=== PATIENT | male | born 1945 | race American Indian/Alaskan Native ===

== ENCOUNTER 2017-08-04 10:45 | Outpatient (CLI) | payer BC ==
--- NOTE | 2017-08-04 11:42 | Cat Scan Report ---
CT ABDOMEN PELVIS WITHOUT CONTRAST: HISTORY: Urinary tract infection site not specified. COMPARISON: none. TECHNIQUE: Helical CT in 1.25mm intervals without IV contrast. Sagittal and coronal reconstructions. FINDINGS: Lung bases: Normal. Liver: Normal. Biliary system: Normal. Pancreas: Normal. Spleen: Normal. Kidneys/ureters/bladder: Normal. A Sheets catheter is in place. Adrenal glands: Normal. Aorta: Normal. Intestines: There is moderate to large stool throughout the length of the colon. Small bowel loops and stomach are unremarkable. Appendix: Normal. Pelvic viscera: The prostate gland is borderline enlarged measuring 5.2 cm in diameter. Ascites: None. Adenopathy: None. Musculoskeletal: Normal. IMPRESSION: Unremarkable CT scan of the abdomen and pelvis without contrast. Mild fecal retention. Borderline prostate size. The bladder is unremarkable on noncontrast CT.
== END 2017-08-04 10:46 | disposition home or self-care (01) ==
LOC: CT 10:45
PROVIDERS: ATTEND Urology
DX: N39.0 Urinary tract infection, site not specified (principal); K59.00 Constipation, unspecified
CPT/HCPCS: 74176

== ENCOUNTER 2017-10-21 09:48 | Outpatient (CLI) | payer MEDICARE ==
--- NOTE | 2017-10-21 14:39 | PET Report ---
PET SB TO MT SUBSEQUENT: HISTORY: Colon cancer. TECHNIQUE: 14.0 millicuries F-18 FDG was administered intravenously. Noncontrast CT images and PET images were obtained from the skull base to the proximal thighs. Fused images were reviewed on a workstation. The patient's blood glucose level measured 117. COMPARISON: No previous PET/CT at this facility. FINDINGS: BRAIN: physiologic FDG uptake in the imaged brain. NECK: physiologic FDG uptake. MEDIASTINUM: physiologic FDG uptake. LUNGS: physiologic FDG uptake. PLEURA/PERICARDIUM: physiologic FDG uptake. THORACIC LYMPH NODES: physiologic FDG uptake. HEPATOBILIARY: physiologic FDG uptake. Mean liver SUV measures 3.8. PANCREAS: physiologic FDG uptake. SPLEEN: physiologic FDG uptake. ADRENAL GLANDS: physiologic FDG uptake. KIDNEYS/RENAL COLLECTING SYSTEMS: physiologic FDG uptake. BOWEL/MESENTERY: There is a solitary focus of relatively intense radiotracer uptake within the left abdomen involving the distal descending colon with Max SUV measuring 5.7. There is no distinct mass in this area on the CT images. This is located approximately 6-7 cm from the left lower quadrant ostomy site. PELVIC VISCERA: physiologic FDG uptake. ABDOMINAL/PELVIC LYMPH NODES: physiologic FDG uptake. MUSCULOSKELETAL: physiologic FDG uptake. IMPRESSION: There is a solitary focus of increased radiotracer uptake in the distal descending colon near the ostomy site as outlined above. I do not clearly see a mass in this area on the CT images however I cannot entirely exclude a local recurrence/metastasis. No other areas of abnormal radiotracer uptake is demonstrated.
== END 2017-10-21 09:49 | disposition home or self-care (01) ==
LOC: PET 09:48
PROVIDERS: ATTEND Internal Medicine Hematology
DX: C18.7 Malignant neoplasm of sigmoid colon (principal); N40.0 Benign prostatic hyperplasia without lower urinary tract symptoms; I10 Essential (primary) hypertension; N32.81 Overactive bladder; E46 Unspecified protein-calorie malnutrition; G47.30 Sleep apnea, unspecified
CPT/HCPCS: 78815; 82962; A9552

== ENCOUNTER 2018-01-04 11:40 | Outpatient (CLI) | payer BC ==
--- NOTE | 2018-01-04 13:13 | XRay Report ---
LEFT KNEE, 3 views: History: Left knee pain. The bony architecture is intact without evidence of fracture or dislocation. No significant soft tissue abnormality is seen. IMPRESSION: Unremarkable left knee films.
== END 2018-01-04 11:41 | disposition home or self-care (01) ==
LOC: SPVIMAG 11:40
DX: M25.562 Pain in left knee (principal); I10 Essential (primary) hypertension; E78.00 Pure hypercholesterolemia, unspecified; I48.91 Unspecified atrial fibrillation; M19.90 Unspecified osteoarthritis, unspecified site

== ENCOUNTER 2018-05-19 09:32 | Outpatient (CLI) | payer BC ==
--- NOTE | 2018-05-20 08:27 | PET Report ---
PET SB TO MT SUBSEQUENT: HISTORY: Colon cancer. TECHNIQUE: 14.6 millicuries F-18 FDG was administered intravenously. Noncontrast CT images and PET images were obtained from the skull base to the proximal thighs. Fused images were reviewed on a workstation. The patient's blood glucose level measured 131. COMPARISON: 10/21/17. FINDINGS: BRAIN: physiologic FDG uptake in the imaged brain. NECK: physiologic FDG uptake. MEDIASTINUM: physiologic FDG uptake. LUNGS: physiologic FDG uptake. PLEURA/PERICARDIUM: physiologic FDG uptake. THORACIC LYMPH NODES: physiologic FDG uptake. HEPATOBILIARY: physiologic FDG uptake. Mean liver SUV measures 3.9 as opposed to 3.8 on the previous exam. PANCREAS: physiologic FDG uptake. SPLEEN: physiologic FDG uptake. ADRENAL GLANDS: physiologic FDG uptake. KIDNEYS/RENAL COLLECTING SYSTEMS: physiologic FDG uptake. BOWEL/MESENTERY: physiologic FDG uptake. The previously described solitary focus of increased radiotracer uptake in the distal colon has resolved and is no longer seen. PELVIC VISCERA: physiologic FDG uptake. ABDOMINAL/PELVIC LYMPH NODES: physiologic FDG uptake. MUSCULOSKELETAL: physiologic FDG uptake. IMPRESSION: Negative PET/CT. No evidence for disease metastasis or recurrence.
== END 2018-05-19 09:33 | disposition home or self-care (01) ==
LOC: PET 09:32
PROVIDERS: ATTEND Internal Medicine Hematology
DX: C18.7 Malignant neoplasm of sigmoid colon (principal); I10 Essential (primary) hypertension; E78.00 Pure hypercholesterolemia, unspecified; M19.90 Unspecified osteoarthritis, unspecified site
CPT/HCPCS: 78815; 82962; A9552

== ENCOUNTER 2018-10-06 11:56 | Outpatient (CLI) | payer BC, MEDICARE ==
--- NOTE | 2018-10-07 10:09 | PET Report ---
PET/CT:10/06/18 11:56:00 CLINICAL: Colon cancer restaging. RADIOPHARMACEUTICAL: 12.677mCi F18-FDG. COMPARISON: 05/19/18 PET/CT TECHNIQUE- Following intravenous injection of F-18 FDG and an approximately 60 minute uptake period, CT and PET images from the mid skull to the upper thighs were acquired with the patient in the fasted state. No contrast was administered. The CT protocol used for this PET CT study is designed for attenuation correction and anatomic localization of PET abnormalities. This acct exec CT is not desired to produce and cannot replace, [id number] diagnostic CT scans with specific imaging protocols for different body parts and indications. Plasma glucose at the time of this test: 82g/dl. The standardized uptake values (SUV) are normalized to patient body weight and indicate the highest activity concentration (SUV max) in a given disease site. FINDINGS: Brain--Physiologic FDG uptake in the visualized regions of the brain. Neck--Physiologic FDG uptake in mucosal structures. No mass or lymphadenopathy. Chest--Physiologic FDG uptake in mediastinal blood pool and myocardium. Lungs--No abnormal uptake. No pulmonary nodule or mass. Pleura/pericardium--No abnormal uptake. Thoracic nodes--No abnormal uptake. Hepatobiliary--No abnormal uptake. Liver background SUV mean, as a reference for comparing FDG studies, is 4.7 compared to 3.9 on the last exam. No liver mass. Spleen--No abnormal uptake. Pancreas--No abnormal uptake. Adrenal Glands--No abnormal uptake. Kidneys/Ureters/Bladder--No abnormal uptake. Abdominopelvic Nodes--No abnormal uptake. Bowel/Peritoneum/Mesentery--No abnormal uptake. Status post left colectomy with a left colostomy. Pelvic organs--No abnormal uptake. Bones/Soft Tissues--No abnormal uptake and no suspicious bone lesions. IMPRESSION-Negative study.
== END 2018-10-06 11:57 | disposition home or self-care (01) ==
LOC: PET 11:56
PROVIDERS: ATTEND Internal Medicine Hematology
DX: C18.7 Malignant neoplasm of sigmoid colon (principal); I10 Essential (primary) hypertension; E78.00 Pure hypercholesterolemia, unspecified
CPT/HCPCS: 78815; 82962; A9552

== ENCOUNTER 2018-11-07 10:16 | Inpatient (IN) | payer MEDICARE ==
--- NOTE | 2018-11-01 12:11 | Anesthesia Consultation ---
Anesthesia Consult and Med Hx Date of service: 11/01/18 - Airway Anesthetic Teeth Evaluation: Good ROM Head & Neck: Adequate Mental/Hyoid Distance: Adequate Mallampati Class: Class II Intubation Access Assessment: Good - Pulmonary Exam CTA: Yes - Cardiac Exam Cardiac Exam: RRR - Pre-Operative Health Status ASA Pre-Surgery Classification: ASA3 Proposed Anesthetic Plan: General (Pt with HTN, DM -diet controlled , Colon CA, GERD for GA.Patient seen by cardiology and had negative stress test ) - Pulmonary Hx Smoking: No Hx Asthma: No COPD: No Hx Pneumonia: No Hx Sleep Apnea: No (KEE PRE SCREEN HIGH RISK) - Cardiovascular System Hx Hypertension: Yes (2011) Hx Coronary Artery Disease: Yes Hx Heart Attack/AMI: Yes (CABG 2011) - Gastrointestinal Hx Ulcer: Yes - Endocrine Hx End Stage Renal Disease: No - Other Systems Hx Cancer: Yes (sigmoid mass)
[2018-11-01 12:21] LABS: Basophils % (Auto) 0.7 % (0.0-1.8); Eosinophils % (Auto) 0.9 % (0.0-4.3); Hematocrit 40.8 % (35.5-45.6); Hemoglobin 13.9 gm/dl (11.8-15.2); Lymphocytes % (Auto) 21.1 % (13.4-35.0); Mean Corpuscular HGB Conc 34 % (32-34); Mean Corpuscular Volume 104 fl (84-94); Monocytes # (Auto) 0.4 K/mm3 (0.0-0.8); Monocytes % (Auto) 8.7 % (0.0-7.3); Platelet Count 121 K/mm3 (140-440); Red Blood Count 3.92 M/mm3 (3.65-5.03); Red Cell Distribution Width 13.7 % (13.2-15.2)
[2018-11-01 12:39] LABS: BUN/Creatinine Ratio 11; Blood Urea Nitrogen 12 mg/dL (9-20); Hemolysis Index 25
[~2018-11-07 10:16] MED LIST: ANCEF/STERILE WATER 2 GM/20 ML 2 GM/20 ML SYRINGE IV NR; FLEET PR ONE; NEURONTIN PO SCH; TYLENOL PO NR
[2018-11-07] MEDS ORDERED: FLEET PR ONE (10:43)
[2018-11-07] MEDS ORDERED: SUBLIMAZE ONE ×2 (11:26→16:55)
[2018-11-07] MEDS ORDERED: DIPRIVAN 10 MG/ML IV ONE (11:26)
[2018-11-07] MEDS ORDERED: ZOFRAN ONE (11:30)
[2018-11-07] MEDS ORDERED: ZEMURON IV ONE (11:30)
--- NOTE | 2018-11-07 11:38 | Anesthesia Day of Surgery ---
Anesthesia Day of Surgery - Day of Surgery Patient Examined: Yes Patient H&P Reviewed: Yes Patient is NPO: Yes Beta Blockers: Yes
[2018-11-07] MEDS ORDERED: VERSED ONE (11:47)
[2018-11-07] MEDS: LACTATED RINGERS 1,000 ML IV SCH ×2 (11:55→21:16)
[2018-11-07] MEDS ORDERED: MARCAINE 0.5% INFILTRATI ONE ×2 (11:58→15:08)
[2018-11-07] MEDS ORDERED: XYLOCAINE 1% 20 mL ONE (11:58)
[2018-11-07] MEDS ORDERED: ZOFRAN IV PRN ×2 (12:30→21:13)
[2018-11-07] MEDS ORDERED: VERSED IV NR (12:30)
[2018-11-07] MEDS ORDERED: SUBLIMAZE IV PRN (12:30)
[2018-11-07] MEDS ORDERED: XYLOCAINE 2% UROJET ONE (12:56)
[2018-11-07] MEDS ORDERED: XYLOCAINE 1% 20 mL INFILTRATI ONE (15:09)
[2018-11-07] MEDS ORDERED: WATER FOR IRRIG STERILE IR ONE (15:09)
[2018-11-07] MEDS ORDERED: NACL 0.9% IR ONE (15:10)
--- NOTE | 2018-11-07 18:24 | Operative Report ---
INTRAOPERATIVE CONSULT AND TREATMENT The patient is a 73-year-old gentleman for colostomy placement. When they were prepping him, he had severe phimosis, they could not see the head of the penis. Urology consultation was obtained to place catheter and to expose the head of the penis. PROCEDURE: The patient was already asleep. He was in partial lithotomy position. He was prepped and draped. The pinpoint opening in the foreskin with a possible mass or thickened foreskin was noted. A biopsy of this was obtained once we exposed the head of the penis. We sent a specimen to pathology. I suspect he will need a followup circumcision. A dorsal slit was carried out and the edges were oversewn with 3-0 chromic. The meatus was seen. There were no lesions on the glans. A 16-Sheets was placed. The urine was clear. The patient tolerated the procedure well. He was prepared for the general surgical procedure. JOB# [id number] HARSHIL/ALPHONSO
--- NOTE | 2018-11-07 18:46 | Post Operative Note ---
Date of procedure: 11/07/18 (dictated - number not available) Pre-op diagnosis: h/o colon cancer; colostomy Post-op diagnosis: same Findings: extensive adhesions in lower abdomen Procedure: robotic assisted colostomy takedown and primary anastomosis extensive lysis of adhesions (robotically) IVF-1700 EBL- <30cc UOP 550cc Anesthesia: GETA Surgeon: EVETTE HERRERA [facility] Center Coordinator: JOELLE SARAVIA Estimated blood loss: minimal Pathology: list (foreskin biopsy by Dr. Shields) Specimen disposition: to lab Condition: stable Disposition: PACU
[2018-11-07] MEDS ORDERED: HumaLOG SUB-Q SCH (20:00)
[2018-11-07] MEDS ORDERED: D50W (25GM) Syringe IV PRN (21:13)
[2018-11-07] MEDS ORDERED: REGLAN IV PRN (21:13)
--- NOTE | 2018-11-07 21:50 | Consultation ---
<JAMAAL CLARK - Last Filed: 11/08/18 06:16> History of Present Illness - Reason for Consult Consult date: 11/07/18 Medical mangement Requesting physician: EVETTE HERRERA - History of Present Illness Pt is a 73 year old male with PMHx of HTN, DM type 2, Colon CA, GERD, BPH who was admitted for an elective robotic colostomy take down. Patient underwent the procedure today, tolerated well, he was seen post op in PACU, he is alert and oriented, somewhat somnolent, able to provide medical history. He is admitted for postop monitoring and further management, hospitalist is consulted for medical management. Past History Past Medical History: diabetes, hypertension, hyperlipidemia, other (BPH and glaucoma) Medications and Allergies Allergies Allergy/AdvReac Type Severity Reaction Status Date / Time No Known Allergies Allergy Verified 10/06/18 09:34 Home Medications Medication Instructions Recorded Confirmed Last Taken Type Aspirin 325 mg PO QDAY 08/02/17 11/07/18 3 Weeks Ago History ~10/17/18 Metoprolol [Lopressor TAB] 25 mg PO DAILY 08/02/17 11/07/18 11/07/18 07:00 History Tamsulosin [Flomax] 0.4 mg PO QDAY 08/02/17 11/07/18 2 Weeks Ago History ~10/24/18 AtorvaSTATin [Lipitor] 40 mg PO QHS 10/06/18 11/07/18 11/05/18 History Latanoprost 0.005% 1 drop OP QPM 10/06/18 11/07/18 11/06/18 History Olmesartan/Hydrochlorothiazide 1 each PO DAILY 10/06/18 11/07/18 11/05/18 History [Olmesartan-Hctz 20-12.5 mg Tab] Active Meds: Active Medications Acetaminophen (Tylenol) 1,000 mg PO PREOP NR Stop: 11/07/18 23:59 Last Admin: 11/07/18 11:25 Dose: 1,000 mg Documented by: Celecoxib (Celebrex) 200 mg PO PREOP NR Stop: 11/07/18 23:59 Last Admin: 11/07/18 11:25 Dose: 200 mg Documented by: Clonidine HCl (Catapres-Tts Patch) 0.2 mg TD Mo MATI Dextrose (D50w (25gm) Syringe) 50 ml IV PRN PRN PRN Reason: Hypoglycemia Gabapentin (Neurontin) 900 mg PO PREOP MATI Stop: 11/07/18 23:59 Last Admin: 11/07/18 11:25 Dose: 900 mg Documented by: Hydromorphone HCl (Dilaudid) 0.25 mg IV Q3H PRN PRN Reason: Pain, Moderate (4-6) Lactated Ringer's (Lactated Ringers) 1,000 mls @ 75 mls/hr IV DIRECT MATI Stop: 11/07/18 23:59 Last Admin: 11/07/18 21:16 Dose: 75 mls/hr Documented by: Cefazolin Sodium (Ancef/Sterile Water 2 Gm/20 Ml) 2 gm in 20 mls @ 80 mls/hr IV PREOP NR; Protocol Stop: 11/07/18 23:59 Insulin Human Regular (Humulin R) 0 units SUB-Q Q6HR MATI; Protocol Latanoprost (Latanoprost 0.005%) 1 drops OU QPM MATI Metoclopramide HCl (Reglan) 10 mg IV Q6H PRN PRN Reason: Nausea And Vomiting Ondansetron HCl (Zofran) 4 mg IV Q8H PRN PRN Reason: N/V unrelieved by Reglan Exam - Constitutional Vitals: Temp Pulse Resp BP Pulse Ox 97.9 F 56 L 20 160/84 100 11/07/18 20:11 11/07/18 20:11 11/07/18 20:11 11/07/18 20:11 11/07/18 20:11 General appearance: Present: mild distress - EENT Eyes: Present: EOM intact ENT: hearing intact - Neck Neck: Present: normal ROM - Respiratory Respiratory effort: normal Respiratory: bilateral: CTA - Cardiovascular Rhythm: regular Heart Sounds: Present: S1 & S2 - Extremities Extremities: no ischemia, No edema Peripheral Pulses: within normal limits - Abdominal General gastrointestinal: Present: deferred Male genitourinary: Present: deferred, normal - Integumentary Integumentary: Present: warm, dry - Musculoskeletal Musculoskeletal: generalized weakness - Psychiatric Psychiatric: appropriate mood/affect - Neurologic Neurologic: moves all extremities Results - Labs CBC & Chem 7: 11/01/18 12:16 11/01/18 12:16 Labs: Abnormal lab results 11/07/18 11/07/18 Range/Units 11:55 19:26 POC Glucose 121 H 163 H (70-105) Assessment and Plan 1. Status post robotic colostomy take down postop day 0 2. Hypertension 3. Hyperlipidemia 4. DM type 2 (stable) 5. Colon Ca 6. GERD 7. BPH Plan: Pt is admitted to surgical unit for monitoring Continue home meds when ok with surgery Resume diet when ok with surgery Glycemic management with insulin per sliding scale Further plan per hospital course and surgery recommendation <DARIUS HURST S - Last Filed: 11/15/18 15:17> Exam - Constitutional Vitals: Temp Pulse Resp BP Pulse Ox 97.3 F L 59 L 18 123/67 96 11/11/18 12:01 11/11/18 12:01 11/11/18 12:01 11/11/18 12:01 11/11/18 12:01 Results - Labs CBC & Chem 7: 11/08/18 06:13 11/08/18 06:13
--- NOTE | 2018-11-07 21:51 | Consultation ---
Medications and Allergies Allergies Allergy/AdvReac Type Severity Reaction Status Date / Time No Known Allergies Allergy Verified 10/06/18 09:34 Home Medications Medication Instructions Recorded Confirmed Last Taken Type Aspirin 325 mg PO QDAY 08/02/17 11/07/18 3 Weeks Ago History ~10/17/18 Metoprolol [Lopressor] 25 mg PO DAILY 08/02/17 11/07/18 11/07/18 07:00 History Tamsulosin [Flomax] 0.4 mg PO QDAY 08/02/17 11/07/18 2 Weeks Ago History ~10/24/18 AtorvaSTATin [Lipitor] 40 mg PO QHS 10/06/18 11/07/18 11/05/18 History Latanoprost 0.005% [Xalatan 0.005%] 1 drop OP QPM 10/06/18 11/07/18 11/06/18 History Olmesartan/Hydrochlorothiazide 1 each PO DAILY 10/06/18 11/07/18 11/05/18 History [Olmesartan-Hctz 20-12.5 mg Tab] Active Meds: Active Medications Acetaminophen (Tylenol) 1,000 mg PO PREOP NR Stop: 11/07/18 23:59 Last Admin: 11/07/18 11:25 Dose: 1,000 mg Documented by: Celecoxib (Celebrex) 200 mg PO PREOP NR Stop: 11/07/18 23:59 Last Admin: 11/07/18 11:25 Dose: 200 mg Documented by: Clonidine HCl (Catapres-Tts Patch) 0.2 mg TD Mo MATI Dextrose (D50w (25gm) Syringe) 50 ml IV PRN PRN PRN Reason: Hypoglycemia Gabapentin (Neurontin) 900 mg PO PREOP MATI Stop: 11/07/18 23:59 Last Admin: 11/07/18 11:25 Dose: 900 mg Documented by: Hydromorphone HCl (Dilaudid) 0.25 mg IV Q3H PRN PRN Reason: Pain, Moderate (4-6) Lactated Ringer's (Lactated Ringers) 1,000 mls @ 75 mls/hr IV DIRECT MATI Stop: 11/07/18 23:59 Last Admin: 11/07/18 21:16 Dose: 75 mls/hr Documented by: Cefazolin Sodium (Ancef/Sterile Water 2 Gm/20 Ml) 2 gm in 20 mls @ 80 mls/hr IV PREOP NR; Protocol Stop: 11/07/18 23:59 Insulin Human Regular (Humulin R) 0 units SUB-Q Q6HR MATI; Protocol Latanoprost (Latanoprost 0.005%) 1 drops OU QPM MATI Metoclopramide HCl (Reglan) 10 mg IV Q6H PRN PRN Reason: Nausea And Vomiting Ondansetron HCl (Zofran) 4 mg IV Q8H PRN PRN Reason: N/V unrelieved by Reglan Exam - Constitutional Vitals: Temp Pulse Resp BP Pulse Ox 97.9 F 56 L 20 160/84 100 11/07/18 20:11 11/07/18 20:11 11/07/18 20:11 11/07/18 20:11 11/07/18 20:11 Results - Labs CBC & Chem 7: 11/01/18 12:16 11/01/18 12:16 Labs: Abnormal lab results 11/07/18 11/07/18 Range/Units 11:55 19:26 POC Glucose 121 H 163 H (70-105)
[2018-11-07] MEDS ORDERED: CATAPRES-TTS PATCH TD SCH (22:00)
[2018-11-07] MEDS: DILAUDID IV PRN (22:15)
--- NOTE | 2018-11-07 22:19 | Post Anesthesia Evaluation ---
- Post Anesthesia Evaluation Patient Participated: Yes Airway Patent: Yes Stable Respiratory Function: Yes Nausea/Vomiting: No Temp > 96.8F: Yes Pain Manageable: Yes Adequeate Hydration: Yes Anesthesia Complications: No
[2018-11-08] MEDS: HumuLIN R SUB-Q SCH ×4 (00:28→17:38)
[2018-11-08] MEDS: DILAUDID IV PRN (05:55)
[2018-11-08 06:32] LABS: Basophils % (Auto) 0.3 % (0.0-1.8); Eosinophils % (Auto) 0.1 % (0.0-4.3); Hematocrit 38.6 % (35.5-45.6); Hemoglobin 13.1 gm/dl (11.8-15.2); Lymphocytes # (Auto) 0.7 K/mm3 (1.2-5.4); Lymphocytes % (Auto) 10.6 % (13.4-35.0); Mean Corpuscular HGB Conc 34 % (32-34); Mean Corpuscular Volume 103 fl (84-94); Monocytes # (Auto) 0.7 K/mm3 (0.0-0.8); Monocytes % (Auto) 9.5 % (0.0-7.3); Platelet Count 108 K/mm3 (140-440); Red Blood Count 3.75 M/mm3 (3.65-5.03); Red Cell Distribution Width 13.5 % (13.2-15.2)
[2018-11-08 06:48] LABS: BUN/Creatinine Ratio 13; Blood Urea Nitrogen 15 mg/dL (9-20); Calcium 8.8 mg/dL (8.4-10.2); Hemolysis Index 42
--- NOTE | 2018-11-08 08:43 | Progress Note ---
Assessment and Plan - Patient Problems (1) Colostomy status Current Visit: Yes Status: Acute Plan to address problem: Pt stable. s/p robotic assisted colostomy takedown and lysis of adhesions. - 11/07/18 - POD#1. Patient appears to be doing well. Labs look good. Vital signs are stable. Plan: 1) ambulate 2) encouraged to use incentive spirometry. Instructed on use 3) start clear liquid diet tonight 4) begin Lovenox tonight 5) spoke to nurse about doing daily dressing changes on the old ostomy site and the foreskin dorsal slit that was done by Dr. Shields. Subjective Date of service: 11/08/18 Patient Reports: Positive: no new complaints. Negative: nausea, vomiting Objective Vital Signs - 12hr 11/07/18 11/07/18 11/07/18 22:00 22:15 22:45 Temperature Pulse Rate Respiratory 16 17 Rate Respiratory 16 Rate [Abdomen] Blood Pressure Blood Pressure [Left] O2 Sat by Pulse Oximetry 11/07/18 11/08/18 11/08/18 23:59 00:04 00:31 Temperature 97.6 F 97.6 F Pulse Rate 71 90 70 Respiratory 20 20 Rate Respiratory Rate [Abdomen] Blood Pressure 147/74 147/74 Blood Pressure 147/74 [Left] O2 Sat by Pulse 99 99 Oximetry 11/08/18 11/08/18 11/08/18 04:07 05:55 08:06 Temperature 97.8 F 98.0 F Pulse Rate 65 71 Respiratory 20 17 18 Rate Respiratory Rate [Abdomen] Blood Pressure 128/64 136/67 Blood Pressure [Left] O2 Sat by Pulse 100 100 Oximetry - General physical appearance no distress, no pain, other (sitting up in bed) - Eyes normal occular movement - Respiratory normal expansion, normal respiratory effort - Abdomen soft, not tender, bowel sounds hypoactive, not distended, not guarding, not rigid, surgical scars (C/d/I) - Psychiatric oriented to time, oriented to person, oriented to place, speech is normal, memory intact - Labs 11/08/18 06:13 11/08/18 06:13 Diabetes panel 11/08/18 Range/Units 06:13 Sodium 142 (137-145) mmol/L Potassium 4.4 (3.6-5.0) mmol/L Chloride 106.0 (98-107) mmol/L Carbon Dioxide 26 (22-30) mmol/L BUN 15 (9-20) mg/dL Creatinine 1.2 (0.8-1.5) mg/dL Glucose 128 H (75-100) mg/dL Calcium 8.8 (8.4-10.2) mg/dL Calcium panel 11/08/18 Range/Units 06:13 Calcium 8.8 (8.4-10.2) mg/dL Pituitary panel 11/08/18 Range/Units 06:13 Sodium 142 (137-145) mmol/L Potassium 4.4 (3.6-5.0) mmol/L Chloride 106.0 (98-107) mmol/L Carbon Dioxide 26 (22-30) mmol/L BUN 15 (9-20) mg/dL Creatinine 1.2 (0.8-1.5) mg/dL Glucose 128 H (75-100) mg/dL Calcium 8.8 (8.4-10.2) mg/dL Adrenal panel 11/08/18 Range/Units 06:13 Sodium 142 (137-145) mmol/L Potassium 4.4 (3.6-5.0) mmol/L Chloride 106.0 (98-107) mmol/L Carbon Dioxide 26 (22-30) mmol/L BUN 15 (9-20) mg/dL Creatinine 1.2 (0.8-1.5) mg/dL Glucose 128 H (75-100) mg/dL Calcium 8.8 (8.4-10.2) mg/dL
--- NOTE | 2018-11-08 13:56 | Operative Report ---
PREOPERATIVE DIAGNOSIS: 1. History of colon cancer. 2. Colostomy. POSTOPERATIVE DIAGNOSIS: 1. History of colon cancer. 2. Colostomy. PROCEDURE: 1. Extensive robotically-assisted lysis of adhesions. 2. Robotically-assisted closure of colostomy and colorectal anastomosis. ATTENDING PHYSICIAN: Meagan Neumann MD DRIER UNLOADER: Dr. Herbert. ANESTHESIA: General. ESTIMATED BLOOD LOSS: Less than 30 mL. FLUIDS: 1700 mL. URINE OUTPUT: 550 mL. SPECIMEN: Portion of penile foreskin. Please see Dr. Shields's note for further details. DRAINS: None. COMPLICATIONS: None. DISPOSITION: Stable transport to Recovery. INDICATIONS: This is a 73-year-old male who is well known to our service as we previously performed a sigmoid resection and Winston procedure for colon cancer. The patient now returns for elective colostomy closure. The procedure, risks and benefits were explained to the patient. Risks included but were not limited to infection, bleeding, pain, injury to surrounding structures, possible need for further procedures in the future. The patient understood and consented. OPERATIVE NOTE: The patient was brought to the operating room and placed on the table in supine position. After adequate general anesthesia was established, attempt was made for Sheets catheter placement. Numerous individuals tried. We had difficulty passing the catheter. Therefore, Dr. Shields from Urology was asked to come into the case. Please see his note for complete details. In summary, he did a dorsal slit of the foreskin and a biopsy was sent. Catheter then was easily placed. We then continued on with the case. The patient was in the lithotomy position. All pressure points were padded. Sterile prep and drape was performed. Timeout was called. Antibiotics had been given. SCDs were in place. I began by placing a Veress needle in the right upper quadrant as we had previously worked on the left and I was concerned about potential scar tissue and injury to underlying bowel. I was able to insufflate on the first attempt. I then placed a 5-mm port in the right lower quadrant and this was going to be the lowest point for my ports. My plan was to place four ports. I entered the peritoneal cavity safely. There was no injury to the underlying structures. I then placed the other ports under direct vision. The patient was placed in Trendelenburg and rotated to the right. We then docked the robot. Thereafter, I began a very extensive lysis of adhesions. It took almost 3 hours to take down all the small bowel adhesions to clear the portion of the rectal stump area as well as the colostomy. The descending colon was mobilized. Once we felt we had adequate dissection, we then proceeded to take down the colostomy as a majority of the dissection had already been done robotically. This was very easy. I cut out a small rim of skin around the colostomy with the cautery device and in a very brief period, we were already in the abdominal cavity as all the dissection had been done underneath. We were able to do the dissection without injury to the bowel. Bowel clamp was placed distally and I excised the top portion of the colostomy with electrocautery. Please note, I had closed the colostomy prior to the start of the case with a 3-0 silk suture. Hemostasis was achieved with electrocautery and with suture ligation, a 29-mm anvil was placed in the bowel, it went in very easily, this was a larger size and then a pursestring suture with 3-0 Prolene was used to go around the opening of the bowel. This was tied down and bowel was allowed to go back into the abdominal cavity. The fascial defect was closed with a 0 PDS suture. This closed very easily. I left the skin open and we packed the wound. We then went back laparoscopically in putting the colon and into the pelvic area. It appeared as though we still needed to do more dissection to free it up so. We went through multiple checks, took down adhesions where we felt there was tension and eventually we were able to get the loop of bowel to rest in the pelvis without any tension. We had to mobilize the small bowel even more that was densely adhered to the sacral and pelvic areas. Ultimately, we got the limb to lay on the left side of the pelvis and it attached very easily to the EEA stapler that Dr. Herbert had passed from below. We checked with an air insufflation test. We could see the bowel moving when she insufflated air; however, we did not necessarily see the whole bowel distend. I tried to press down on the proximal end to allow the gas to accumulate. What we clearly did note is that no matter how many times she was insufflating air. We saw absolutely no evidence of any air leaking out from the anastomotic site. The donuts were intact on both ends per Piedad. At this point, I felt that we had an anastomosis without tension and we saw no suggestion of any air bubbles which would make me concern for a leak; therefore, we did not do anything further. We thoroughly washed out the abdomen, checked for hemostasis, everything looked good. Our fascial closure from earlier looked very good. We then removed the ports after closing the 12 mm port site with a Chris-Volodymyr fascial closure device using a 0 Vicryl stitch. Skin was cleaned and dried. Skin was closed with 4-0 Monocryl subcuticular stitches. Additional local was injected. Dermabond was placed. The patient tolerated the procedure well. There were no complications. All counts were correct. Sheets catheter will be left until tomorrow. I spoke with the after the case. JOB# [id number] SAKSHI/ALPHONSO
--- NOTE | 2018-11-08 16:28 | Progress Note ---
Assessment and Plan Assessment and plan: Pt is a 73 year old male with PMHx of HTN, DM type 2, Colon CA, GERD, BPH who was admitted for an elective robotic colostomy take down. Patient underwent the procedure today, tolerated well, he was seen post op in PACU, he is alert and oriented, somewhat somnolent, able to provide medical history. He is admitted for postop monitoring and further management, hospitalist is consulted for medical management. 1. Status post robotic colostomy take down postop day 1 2. Hypertension 3. Hyperlipidemia 4. DM type 2 (stable) 5. Colon Ca 6. GERD 7. BPH Plan: s/p Colostomy Takedown and lysis of adhesion Continue home meds when ok with surgery Resume diet when ok with surgery Encouraged ambulation and IS use Glycemic management with insulin per sliding scale Further plan per hospital course and surgery recommendation DVT Prophy started per surgery History Interval history: Patient seen and examined, no new complains. Hospitalist Physical - Physical exam Narrative exam: General appearance: Present: mild distress - EENT Eyes: Present: EOM intact ENT: hearing intact - Neck Neck: Present: normal ROM - Respiratory Respiratory effort: normal Respiratory: bilateral: CTA - Cardiovascular Rhythm: regular Heart Sounds: Present: S1 & S2 - Extremities Extremities: no ischemia, No edema Peripheral Pulses: within normal limits - Abdominal General gastrointestinal: Present: deferred Male genitourinary: Present: deferred, normal - Integumentary Integumentary: Present: warm, dry - Musculoskeletal Musculoskeletal: generalized weakness - Psychiatric Psychiatric: appropriate mood/affect - Neurologic Neurologic: moves all extremities - Constitutional Vitals: Temp Pulse Resp BP Pulse Ox 97.7 F 57 L 18 122/54 98 11/08/18 11:19 11/08/18 11:19 11/08/18 11:19 11/08/18 11:19 11/08/18 11:19 General appearance: Present: mild distress Results - Labs CBC & Chem 7: 11/08/18 06:13 11/08/18 06:13 Labs: Laboratory Last Values WBC 6.9 K/mm3 (4.5-11.0) 11/08/18 06:13 RBC 3.75 M/mm3 (3.65-5.03) 11/08/18 06:13 Hgb 13.1 gm/dl (11.8-15.2) 11/08/18 06:13 Hct 38.6 % (35.5-45.6) 11/08/18 06:13 MCV 103 fl (84-94) H 11/08/18 06:13 MCH 35 pg (28-32) H 11/08/18 06:13 MCHC 34 % (32-34) 11/08/18 06:13 RDW 13.5 % (13.2-15.2) 11/08/18 06:13 Plt Count 108 K/mm3 (140-440) L 11/08/18 06:13 Lymph % (Auto) 10.6 % (13.4-35.0) L 11/08/18 06:13 Door % (Auto) 9.5 % (0.0-7.3) H 11/08/18 06:13 Eos % (Auto) 0.1 % (0.0-4.3) 11/08/18 06:13 Baso % (Auto) 0.3 % (0.0-1.8) 11/08/18 06:13 Lymph # 0.7 K/mm3 (1.2-5.4) L 11/08/18 06:13 Door # 0.7 K/mm3 (0.0-0.8) 11/08/18 06:13 Eos # 0.0 K/mm3 (0.0-0.4) 11/08/18 06:13 Baso # 0.0 K/mm3 (0.0-0.1) 11/08/18 06:13 Seg Neutrophils % 79.5 % (40.0-70.0) H 11/08/18 06:13 Seg Neutrophils # 5.5 K/mm3 (1.8-7.7) 11/08/18 06:13 Sodium 142 mmol/L (137-145) 11/08/18 06:13 Potassium 4.4 mmol/L (3.6-5.0) 11/08/18 06:13 Chloride 106.0 mmol/L (98-107) 11/08/18 06:13 Carbon Dioxide 26 mmol/L (22-30) 11/08/18 06:13 14 mmol/L 11/08/18 06:13 BUN 15 mg/dL (9-20) 11/08/18 06:13 1.2 mg/dL (0.8-1.5) 11/08/18 06:13 Estimated GFR > 60 ml/min 11/08/18 06:13 13 % 11/08/18 06:13 Glucose 128 mg/dL (75-100) H 11/08/18 06:13 POC Glucose 90 (70-105) 11/08/18 12:43 Calcium 8.8 mg/dL (8.4-10.2) 11/08/18 06:13 Active Medications - Current Medications Current Medications: Generic Name Dose Route Start Last Admin Trade Name Freq PRN Reason Stop Dose Admin Clonidine HCl 0.2 mg 11/07/18 22:00 11/08/18 00:31 Catapres-Tts Patch TD 0.2 mg Mo MATI Administration Dextrose 50 ml 11/07/18 21:13 D50w (25gm) Syringe IV PRN PRN Hypoglycemia Enoxaparin Sodium 40 mg 11/08/18 22:00 Lovenox SUB-Q QDAY@2200 [facility] Hydromorphone HCl 0.25 mg 11/07/18 21:13 11/08/18 05:55 Dilaudid IV 0.25 mg Q3H PRN Administration Pain, Moderate (4-6) Insulin Human Regular 0 units 11/08/18 00:00 11/08/18 12:37 Humulin R SUB-Q Not Given Q6HR [facility] Protocol Latanoprost 1 drops 11/08/18 18:00 Latanoprost 0.005% OU QPM [facility] Metoclopramide HCl 10 mg 11/07/18 21:13 Reglan IV Q6H PRN Nausea And Vomiting Ondansetron HCl 4 mg 11/07/18 21:13 Zofran IV Q8H PRN N/V unrelieved by Chen
[2018-11-08] MEDS: LOVENOX SUB-Q SCH (22:33)
[2018-11-08] MEDS: LATANOPROST 0.005% OU SCH (22:33)
[2018-11-09] MEDS: HumuLIN R SUB-Q SCH ×4 (04:23→18:05)
--- NOTE | 2018-11-09 13:45 | Progress Note ---
Assessment and Plan - Patient Problems (1) Colostomy status Current Visit: Yes Status: Acute Plan to address problem: Pt stable. s/p robotic assisted colostomy takedown and lysis of adhesions. - 11/07/18 - POD#2. Patient appears to be doing well. Labs look good. Vital signs are stable. Plan: 1) ambulate (did not walk yesterday) 2) cont incentive spirometry. 3) start soft diet tonight 4) cont lovenox 5) may resume home meds Subjective Date of service: 11/09/18 Patient Reports: Positive: no new complaints, feels better, tolerating liquids well, no flatus, no bowel movement. Negative: nausea, vomiting Objective Vital Signs - 12hr 11/09/18 11/09/18 11/09/18 03:59 07:04 11:01 Temperature 97.6 F 98.2 F 97.5 F L Pulse Rate 63 64 68 Respiratory 19 16 18 Rate Blood Pressure 133/67 136/68 138/69 O2 Sat by Pulse 96 97 94 Oximetry - General physical appearance no distress, no pain, other (looks comfortable) - Respiratory normal expansion, normal respiratory effort - Abdomen soft, not tender, bowel sounds hypoactive, distended (mild), not guarding, not rigid - Psychiatric speech is normal - Labs 11/08/18 06:13 11/08/18 06:13
--- NOTE | 2018-11-09 15:06 | Progress Note ---
Assessment and Plan Assessment and plan: Pt is a 73 year old male with PMHx of HTN, DM type 2, Colon CA, GERD, BPH who was admitted for an elective robotic colostomy take down. Patient underwent the procedure today, tolerated well, he was seen post op in PACU, he is alert and oriented, somewhat somnolent, able to provide medical history. He is admitted for postop monitoring and further management, hospitalist is consulted for medical management. 1. Status post robotic colostomy take down postop day 2 2. Hypertension 3. Hyperlipidemia 4. DM type 2 (stable) 5. Colon Ca 6. GERD 7. BPH Plan: s/p Colostomy Takedown and lysis of adhesion Continue home meds when ok with surgery Resume diet when ok with surgery Encouraged ambulation and IS use Glycemic management with insulin per sliding scale Further plan per hospital course and surgery recommendation DVT Prophy started per surgery History Interval history: Patient seen and examined, no new complains, resting comfortable. Hospitalist Physical - Physical exam Narrative exam: General appearance: Present: mild distress - EENT Eyes: Present: EOM intact ENT: hearing intact - Neck Neck: Present: normal ROM - Respiratory Respiratory effort: normal Respiratory: bilateral: CTA - Cardiovascular Rhythm: regular Heart Sounds: Present: S1 & S2 - Extremities Extremities: no ischemia, No edema Peripheral Pulses: within normal limits - Abdominal General gastrointestinal: Present: +bs, non distended, dressing is in place. - Integumentary Integumentary: Present: warm, dry - Musculoskeletal Musculoskeletal: generalized weakness - Psychiatric Psychiatric: appropriate mood/affect - Neurologic Neurologic: moves all extremities - Constitutional Vitals: Temp Pulse Resp BP Pulse Ox 97.5 F L 68 18 138/69 94 11/09/18 11:01 11/09/18 11:01 11/09/18 11:01 11/09/18 11:01 11/09/18 11:01 General appearance: Present: mild distress Results - Labs CBC & Chem 7: 11/08/18 06:13 11/08/18 06:13 Labs: Laboratory Last Values WBC 6.9 K/mm3 (4.5-11.0) 11/08/18 06:13 RBC 3.75 M/mm3 (3.65-5.03) 11/08/18 06:13 Hgb 13.1 gm/dl (11.8-15.2) 11/08/18 06:13 Hct 38.6 % (35.5-45.6) 11/08/18 06:13 MCV 103 fl (84-94) H 11/08/18 06:13 MCH 35 pg (28-32) H 11/08/18 06:13 MCHC 34 % (32-34) 11/08/18 06:13 RDW 13.5 % (13.2-15.2) 11/08/18 06:13 Plt Count 108 K/mm3 (140-440) L 11/08/18 06:13 Lymph % (Auto) 10.6 % (13.4-35.0) L 11/08/18 06:13 [place] % (Auto) 9.5 % (0.0-7.3) H 11/08/18 06:13 Eos % (Auto) 0.1 % (0.0-4.3) 11/08/18 06:13 Baso % (Auto) 0.3 % (0.0-1.8) 11/08/18 06:13 Lymph # 0.7 K/mm3 (1.2-5.4) L 11/08/18 06:13 [place] # 0.7 K/mm3 (0.0-0.8) 11/08/18 06:13 Eos # 0.0 K/mm3 (0.0-0.4) 11/08/18 06:13 Baso # 0.0 K/mm3 (0.0-0.1) 11/08/18 06:13 Seg Neutrophils % 79.5 % (40.0-70.0) H 11/08/18 06:13 Seg Neutrophils # 5.5 K/mm3 (1.8-7.7) 11/08/18 06:13 Sodium 142 mmol/L (137-145) 11/08/18 06:13 Potassium 4.4 mmol/L (3.6-5.0) 11/08/18 06:13 Chloride 106.0 mmol/L (98-107) 11/08/18 06:13 Carbon Dioxide 26 mmol/L (22-30) 11/08/18 06:13 14 mmol/L 11/08/18 06:13 BUN 15 mg/dL (9-20) 11/08/18 06:13 1.2 mg/dL (0.8-1.5) 11/08/18 06:13 Estimated GFR > 60 ml/min 11/08/18 06:13 13 % 11/08/18 06:13 Glucose 128 mg/dL (75-100) H 11/08/18 06:13 POC Glucose 151 (70-105) H 11/09/18 11:09 Calcium 8.8 mg/dL (8.4-10.2) 11/08/18 06:13 Active Medications - Current Medications Current Medications: Generic Name Dose Route Start Last Admin Trade Name Freq PRN Reason Stop Dose Admin Clonidine HCl 0.2 mg 11/07/18 22:00 11/08/18 00:31 Catapres-Tts Patch TD 0.2 mg Mo MATI Administration Dextrose 50 ml 11/07/18 21:13 D50w (25gm) Syringe IV PRN PRN Hypoglycemia Enoxaparin Sodium 40 mg 11/08/18 22:00 11/08/18 22:33 Lovenox SUB-Q 40 mg QDAY@2200 [facility] Administration Hydromorphone HCl 0.25 mg 11/07/18 21:13 11/08/18 05:55 Dilaudid IV 0.25 mg Q3H PRN Administration Pain, Moderate (4-6) Insulin Human Regular 0 units 11/08/18 00:00 11/09/18 07:29 Humulin R SUB-Q Not Given Q6HR [facility] Protocol Latanoprost 1 drops 11/08/18 18:00 11/08/18 22:33 Latanoprost 0.005% OU 1 drops QPM [facility] Administration Metoclopramide HCl 10 mg 11/07/18 21:13 Reglan IV Q6H PRN Nausea And Vomiting Ondansetron HCl 4 mg 11/07/18 21:13 Zofran IV Q8H PRN N/V unrelieved by Chen
[2018-11-09] MEDS ORDERED: VASELINE LIP THERAPY TP PRN (18:53)
[2018-11-09] MEDS: DILAUDID IV PRN (19:07)
[2018-11-09] MEDS: LOVENOX SUB-Q SCH (21:42)
[2018-11-09] MEDS: LATANOPROST 0.005% OU SCH (23:03)
[2018-11-10] MEDS: HumuLIN R SUB-Q SCH ×3 (01:36→18:06)
--- NOTE | 2018-11-10 13:09 | Progress Note ---
Assessment and Plan - Patient Problems (1) Colostomy status Current Visit: Yes Status: Acute Plan to address problem: Pt stable. s/p robotic assisted colostomy takedown and lysis of adhesions. - 11/07/18 - POD#3. Patient appears to be doing well. Vital signs are stable. Had 3 bowel movements. 1st one had blood. last one did not. tolerated soft diet. No concerns. Plan: 1) ambulate 2) cont incentive spirometry. 3) cont soft diet 4) cont lovenox 5) arrange for home health 6) scheduled for wound clinic on 11/18 at 10am - will also do post-op visit at that time. 7) teach wound care to patient today 8) anticipate d/c home tomorrow. 9) resume home meds Subjective Date of service: 11/10/18 Patient Reports: Positive: feels better, pain is less, tolerating a regular diet, bowel movement, blood in stool, afebrile. Negative: nausea, vomiting Objective Vital Signs - 12hr 11/10/18 11/10/18 11/10/18 04:45 08:00 12:15 Temperature 97.6 F 98 F 98.2 F Pulse Rate 51 L 59 L 73 Respiratory 16 18 18 Rate Blood Pressure 135/67 115/65 Blood Pressure 134/76 [Left] O2 Sat by Pulse 96 98 96 Oximetry - General physical appearance no distress, no pain, other (looks good) - Respiratory normal expansion, normal respiratory effort - Abdomen soft, not tender, not distended, wound (clean with granulation tissue), surgical scars (C/D/I) - Integumentary no rash, no growths, no abnormal pigmentation - Psychiatric oriented to time, oriented to person, oriented to place, speech is normal, memory intact - Labs 11/08/18 06:13 11/08/18 06:13
--- NOTE | 2018-11-10 14:29 | Progress Note ---
Assessment and Plan Assessment and plan: Pt is a 73 year old male with PMHx of HTN, DM type 2, Colon CA, GERD, BPH who was admitted for an elective robotic colostomy take down. Patient underwent the procedure today, tolerated well, he was seen post op in PACU, he is alert and oriented, somewhat somnolent, able to provide medical history. He is admitted for postop monitoring and further management, hospitalist is consulted for medical management. 1. Status post robotic colostomy take down postop day 3 2. Hypertension 3. Hyperlipidemia 4. DM type 2 (stable) 5. Colon Ca 6. GERD 7. BPH Plan: s/p Colostomy Takedown and lysis of adhesion Continue home meds when ok with surgery Plan for home health Resume diet when ok with surgery Encouraged ambulation and IS use Glycemic management with insulin per sliding scale Further plan per hospital course and surgery recommendation DVT Prophy started per surgery History Interval history: Patient seen and examined, no new complains, resting comfortable. `no family present. Per nursing staff, patient has had 3 BM Hospitalist Physical - Physical exam Narrative exam: General appearance: Present: mild distress - EENT Eyes: Present: EOM intact ENT: hearing intact - Neck Neck: Present: normal ROM - Respiratory Respiratory effort: normal Respiratory: bilateral: CTA - Cardiovascular Rhythm: regular Heart Sounds: Present: S1 & S2 - Extremities Extremities: no ischemia, No edema Peripheral Pulses: within normal limits - Abdominal General gastrointestinal: Present: +bs, non distended, dressing is in place. - Integumentary Integumentary: Present: warm, dry - Musculoskeletal Musculoskeletal: generalized weakness - Psychiatric Psychiatric: appropriate mood/affect - Neurologic Neurologic: moves all extremities - Constitutional Vitals: Temp Pulse Resp BP Pulse Ox 98.2 F 73 18 115/65 96 11/10/18 12:15 11/10/18 12:15 11/10/18 12:15 11/10/18 12:15 11/10/18 12:15 General appearance: Present: mild distress Results - Labs CBC & Chem 7: 11/08/18 06:13 11/08/18 06:13 Labs: Laboratory Last Values WBC 6.9 K/mm3 (4.5-11.0) 11/08/18 06:13 RBC 3.75 M/mm3 (3.65-5.03) 11/08/18 06:13 Hgb 13.1 gm/dl (11.8-15.2) 11/08/18 06:13 Hct 38.6 % (35.5-45.6) 11/08/18 06:13 MCV 103 fl (84-94) H 11/08/18 06:13 MCH 35 pg (28-32) H 11/08/18 06:13 MCHC 34 % (32-34) 11/08/18 06:13 RDW 13.5 % (13.2-15.2) 11/08/18 06:13 Plt Count 108 K/mm3 (140-440) L 11/08/18 06:13 Lymph % (Auto) 10.6 % (13.4-35.0) L 11/08/18 06:13 [place] % (Auto) 9.5 % (0.0-7.3) H 11/08/18 06:13 Eos % (Auto) 0.1 % (0.0-4.3) 11/08/18 06:13 Baso % (Auto) 0.3 % (0.0-1.8) 11/08/18 06:13 Lymph # 0.7 K/mm3 (1.2-5.4) L 11/08/18 06:13 [place] # 0.7 K/mm3 (0.0-0.8) 11/08/18 06:13 Eos # 0.0 K/mm3 (0.0-0.4) 11/08/18 06:13 Baso # 0.0 K/mm3 (0.0-0.1) 11/08/18 06:13 Seg Neutrophils % 79.5 % (40.0-70.0) H 11/08/18 06:13 Seg Neutrophils # 5.5 K/mm3 (1.8-7.7) 11/08/18 06:13 Sodium 142 mmol/L (137-145) 11/08/18 06:13 Potassium 4.4 mmol/L (3.6-5.0) 11/08/18 06:13 Chloride 106.0 mmol/L (98-107) 11/08/18 06:13 Carbon Dioxide 26 mmol/L (22-30) 11/08/18 06:13 14 mmol/L 11/08/18 06:13 BUN 15 mg/dL (9-20) 11/08/18 06:13 1.2 mg/dL (0.8-1.5) 11/08/18 06:13 Estimated GFR > 60 ml/min 11/08/18 06:13 13 % 11/08/18 06:13 Glucose 128 mg/dL (75-100) H 11/08/18 06:13 POC Glucose 209 (70-105) H 11/10/18 11:26 Calcium 8.8 mg/dL (8.4-10.2) 11/08/18 06:13 Active Medications - Current Medications Current Medications: Generic Name Dose Route Start Last Admin Trade Name Freq PRN Reason Stop Dose Admin Clonidine HCl 0.2 mg 11/07/18 22:00 11/08/18 00:31 Catapres-Tts Patch TD 0.2 mg Mo MATI Administration Dextrose 50 ml 11/07/18 21:13 D50w (25gm) Syringe IV PRN PRN Hypoglycemia Enoxaparin Sodium 40 mg 11/08/18 22:00 11/09/18 21:42 Lovenox SUB-Q 40 mg QDAY@2200 [facility] Administration Hydromorphone HCl 0.25 mg 11/07/18 21:13 11/09/18 19:07 Dilaudid IV 0.25 mg Q3H PRN Administration Pain, Moderate (4-6) Hydrophilic Ointment 1 applic 11/09/18 18:53 Vaseline Lip Therapy TP DIRECT PRN Dry Lips Insulin Human Regular 0 units 11/08/18 00:00 11/10/18 01:36 Humulin R SUB-Q Not Given Q6HR [facility] Protocol Latanoprost 1 drops 11/08/18 18:00 11/09/18 23:03 Latanoprost 0.005% OU Not Given QPM [facility] Metoclopramide HCl 10 mg 11/07/18 21:13 Reglan IV Q6H PRN Nausea And Vomiting Ondansetron HCl 4 mg 11/07/18 21:13 Zofran IV Q8H PRN N/V unrelieved by Chen
[2018-11-10] MEDS: LATANOPROST 0.005% OU SCH (18:10)
[2018-11-10] MEDS: LOVENOX SUB-Q SCH (21:38)
[2018-11-11] MEDS: HumuLIN R SUB-Q SCH ×3 (04:50→13:28)
--- NOTE | 2018-11-11 11:41 | Discharge Summary ---
Providers - Providers Date of Admission: 11/07/18 10:16 Attending physician: EVETTE HERRERA MD 11/07/18 21:13 Consult to Physician [CONS] Routine Comment: Consulting Provider: MIKEY MICHAELS Physician Instructions: Reason For Exam: Medical management 11/10/18 14:37 Consult to Case Management [CONS] Routine Services Needed at Discharge: Home Health Services Notified:: [employer] Additional Physician Instructions: Abdominal wound care Primary care physician: RIVERA VIVAR Hospitalization Reason for admission: abdominal pain Hospital course: Pt is a 73 year old male with PMHx of HTN, DM type 2, Colon CA, GERD, BPH who was admitted for an elective robotic colostomy take down. Patient underwent the procedure today, tolerated well, he was seen post op in PACU, he is alert and oriented, somewhat somnolent, able to provide medical history. He is admitted for postop monitoring and further management, hospitalist is consulted for medical management. patient underwent surgical procedure as documented by surgery and is doing well today for discharge. 1. Status post robotic colostomy take down postop day 4 2. Hypertension 3. Hyperlipidemia 4. DM type 2 (stable) 5. Colon Ca 6. GERD 7. BPH Disposition: [id number]/[place]-06 HOME UNDER HOME [facility] Time spent for discharge: 35 mins Core Measure Documentation - Palliative Care Palliative Care/ Comfort Measures: Not Applicable - Core Measures Any of the following diagnoses?: none Exam - Physical Exam Narrative exam: General appearance: Present: mild distress - EENT Eyes: Present: EOM intact ENT: hearing intact - Neck Neck: Present: normal ROM - Respiratory Respiratory effort: normal Respiratory: bilateral: CTA - Cardiovascular Rhythm: regular Heart Sounds: Present: S1 & S2 - Extremities Extremities: no ischemia, No edema Peripheral Pulses: within normal limits - Abdominal General gastrointestinal: Present: +bs, non distended, dressing is in place. - Integumentary Integumentary: Present: warm, dry - Musculoskeletal Musculoskeletal: generalized weakness - Psychiatric Psychiatric: appropriate mood/affect - Neurologic Neurologic: moves all extremities - Constitutional Vitals: Temp Pulse Resp BP Pulse Ox 97.3 F L 56 L 18 117/58 97 11/11/18 08:05 11/11/18 08:05 11/11/18 08:05 11/11/18 08:05 11/11/18 08:05 Plan Activity: advance as tolerated, fall precautions Diet: advance as tolerated Wound: per wound nurse instructions, other (Follow up at wound care clinic on 11/18 at 10am) Special Instructions: record daily BP diary Follow up with: RIVERA VIVAR MD, PHD [Primary Care Provider] - 7 Days EVETTE HERRERA MD [Staff Physician] - 11/18/18 10:00 am MIHAELA HAYWARD MD [Staff Physician] - 7 Days
[2018-11-11 12:56] VITALS: BP 123/67
--- NOTE | 2018-11-11 13:33 | Progress Note ---
Assessment and Plan - Patient Problems (1) Colostomy status Current Visit: Yes Status: Acute Plan to address problem: Pt stable. s/p robotic assisted colostomy takedown and lysis of adhesions. - 11/07/18 - POD#4. Patient appears to be doing well. Vital signs are stable. no issues. Plan: 1) d/c home 2) f/u in wound clinic on 11/18 at 10am 3) 1 week f/u with Dr. Shields 4) Daily wet to dry dressing changes to abdominal wound. Nurse to instruct mane ent 5) cover penile area with petroleum gauze daily 6) May shower. Pat dry wounds 7) no strenuous activity 8) diet as tolerated Subjective Date of service: 11/11/18 Patient Reports: Positive: no new complaints, feels better, tolerating a regular diet, bowel movement (liquid - no blood). Negative: nausea, vomiting Objective Vital Signs - 12hr 11/11/18 11/11/18 11/11/18 05:53 05:54 08:05 Temperature 97.5 F L 97.3 F L Pulse Rate 56 L 49 L 56 L Respiratory 18 18 Rate Blood Pressure 155/73 117/58 O2 Sat by Pulse 94 97 97 Oximetry 11/11/18 12:01 Temperature 97.3 F L Pulse Rate 59 L Respiratory 18 Rate Blood Pressure 123/67 O2 Sat by Pulse 96 Oximetry - General physical appearance no distress, no pain, other (looks well) - Eyes normal occular movement - Respiratory normal expansion, normal respiratory effort - Abdomen soft, not distended - Psychiatric oriented to time, oriented to person, oriented to place, speech is normal, memory intact - Labs 11/08/18 06:13 11/08/18 06:13
== END 2018-11-11 18:08 | disposition home health service (06) | DRG 337 ==
LOC: 3A 10:16 → 3B-SURG 19:03
PROVIDERS: ADMIT Surgery; ATTEND Surgery
PROC: 0DSM4ZZ Reposition Descending Colon, Percutaneous Endoscopic Approach (ICD-10-PCS; principal; 2018-11-07)
PROC: 0DN84ZZ Release Small Intestine, Percutaneous Endoscopic Approach (ICD-10-PCS; 2018-11-07)
PROC: 0VBSXZX Excision of Penis, External Approach, Diagnostic (ICD-10-PCS; 2018-11-07)
PROC: 8E0W4CZ Robotic Assisted Procedure of Trunk Region, Percutaneous Endoscopic Approach (ICD-10-PCS; 2018-11-07)
DX: Z43.3 Encounter for attention to colostomy (principal); E11.9 Type 2 diabetes mellitus without complications; K21.9 Gastro-esophageal reflux disease without esophagitis; E78.5 Hyperlipidemia, unspecified; N40.0 Benign prostatic hyperplasia without lower urinary tract symptoms; H40.9 Unspecified glaucoma; I10 Essential (primary) hypertension; K66.0 Peritoneal adhesions (postprocedural) (postinfection); G47.30 Sleep apnea, unspecified; Z90.49 Acquired absence of other specified parts of digestive tract; Z79.82 Long term (current) use of aspirin; I25.2 Old myocardial infarction; Z95.1 Presence of aortocoronary bypass graft; Z87.11 Personal history of peptic ulcer disease; Z79.84 Long term (current) use of oral hypoglycemic drugs
CPT/HCPCS: 36415; 80048; 82962; 85025; 88304; G0378; J0690; J1170; J1650; J1815; J2250; J2405; J2704; J3010; J7120

== ENCOUNTER 2018-11-18 10:12 | Outpatient (CLI) | payer MEDICARE ==
[2018-11-18] MEDS ORDERED: XYLOCAINE TOPICAL 4% TP ONE (10:34)
--- NOTE | 2018-11-22 07:59 | Progress Note ---
Assessment and Plan Assessment and plan: Pt is a 73 year old male with PMHx of HTN, DM type 2, Colon CA, GERD, BPH who was admitted for an elective robotic colostomy take down. Patient underwent the procedure today, tolerated well, he was seen post op in PACU, he is alert and oriented, somewhat somnolent, able to provide medical history. He is admitted for postop monitoring and further management, hospitalist is consulted for medical management. 1. Status post robotic colostomy take down postop day 4 2. Hypertension 3. Hyperlipidemia 4. DM type 2 (stable) 5. Colon Ca 6. GERD 7. BPH Plan: s/p Colostomy Takedown and lysis of adhesion stable for discharge from hospitalist stand point Plan for home health Resume diet when ok with surgery Encouraged ambulation and IS use Glycemic management with insulin per sliding scale Further plan per hospital course and surgery recommendation DVT Prophy started per surgery History Interval history: Patient seen and doing well, no new complaints Hospitalist Physical - Physical exam Narrative exam: General appearance: Present: mild distress - EENT Eyes: Present: EOM intact ENT: hearing intact - Neck Neck: Present: normal ROM - Respiratory Respiratory effort: normal Respiratory: bilateral: CTA - Cardiovascular Rhythm: regular Heart Sounds: Present: S1 & S2 - Extremities Extremities: no ischemia, No edema Peripheral Pulses: within normal limits - Abdominal General gastrointestinal: Present: +bs, non distended, dressing is in place. - Integumentary Integumentary: Present: warm, dry - Musculoskeletal Musculoskeletal: generalized weakness - Psychiatric Psychiatric: appropriate mood/affect - Neurologic Neurologic: moves all extremities
== END 2018-11-18 10:13 | disposition home or self-care (01) ==
LOC: WOUND 10:12
PROVIDERS: ATTEND Surgery
DX: T81.89XA Other complications of procedures, not elsewhere classified, initial encounter (principal); Y83.8 Other surgical procedures as the cause of abnormal reaction of the patient, or of later complication, without mention of misadventure at the time of the procedure; Y92.89 Other specified places as the place of occurrence of the external cause
CPT/HCPCS: 11042; G0463; 99214

== ENCOUNTER 2018-11-25 10:42 | Outpatient (CLI) | payer MEDICARE ==
[2018-11-25] MEDS ORDERED: XYLOCAINE TOPICAL 4% TP ONE (11:15)
== END 2018-11-25 10:43 | disposition home or self-care (01) ==
LOC: WOUND 10:42
PROVIDERS: ATTEND Surgery
DX: T81.89XD Other complications of procedures, not elsewhere classified, subsequent encounter (principal); C18.7 Malignant neoplasm of sigmoid colon; E10.9 Type 1 diabetes mellitus without complications; I10 Essential (primary) hypertension; I25.10 Atherosclerotic heart disease of native coronary artery without angina pectoris; Y83.8 Other surgical procedures as the cause of abnormal reaction of the patient, or of later complication, without mention of misadventure at the time of the procedure

== ENCOUNTER 2018-12-02 10:36 | Outpatient (CLI) | payer MEDICARE | END 2018-12-02 10:37 | disposition home or self-care (01) | LOC: WOUND 10:36 | PROVIDERS: ATTEND Surgery | DX: T81.89XD Other complications of procedures, not elsewhere classified, subsequent encounter (principal); C18.7 Malignant neoplasm of sigmoid colon; E10.9 Type 1 diabetes mellitus without complications; I25.10 Atherosclerotic heart disease of native coronary artery without angina pectoris; Z95.5 Presence of coronary angioplasty implant and graft; Y83.8 Other surgical procedures as the cause of abnormal reaction of the patient, or of later complication, without mention of misadventure at the time of the procedure | CPT/HCPCS: 99213; G0463 ==

== ENCOUNTER 2018-12-09 10:31 | Outpatient (CLI) | payer MEDICARE | END 2018-12-09 10:32 | disposition home or self-care (01) | LOC: WOUND 10:31 | PROVIDERS: ATTEND Surgery | DX: T81.89XD Other complications of procedures, not elsewhere classified, subsequent encounter (principal); C18.7 Malignant neoplasm of sigmoid colon; E10.9 Type 1 diabetes mellitus without complications; I25.10 Atherosclerotic heart disease of native coronary artery without angina pectoris; Z95.1 Presence of aortocoronary bypass graft; Z95.5 Presence of coronary angioplasty implant and graft; Z87.891 Personal history of nicotine dependence; Y83.8 Other surgical procedures as the cause of abnormal reaction of the patient, or of later complication, without mention of misadventure at the time of the procedure | CPT/HCPCS: 99213; G0463 ==

== ENCOUNTER 2020-02-22 05:26 | Observation (INO) | payer BC, MEDICARE ==
[2020-02-22] MEDS ORDERED: ASPIRIN 325 MG TAB PO ONE (05:52)
[2020-02-22 06:18] LABS: Basophils % (Auto) 0.5 % (0.0-1.8); Eosinophils % (Auto) 0.4 % (0.0-4.3); Hematocrit 37.1 % (35.5-45.6); Hemoglobin 12.5 gm/dl (11.8-15.2); Lymphocytes # (Auto) 1.1 K/mm3 (1.2-5.4); Lymphocytes % (Auto) 17.7 % (13.4-35.0); Mean Corpuscular HGB Conc 34 % (32-34); Mean Corpuscular Volume 103 fl (84-94); Monocytes # (Auto) 0.5 K/mm3 (0.0-0.8); Monocytes % (Auto) 7.7 % (0.0-7.3); Platelet Count 158 K/mm3 (140-440); Red Cell Distribution Width 13.1 % (13.2-15.2)
--- NOTE | 2020-02-22 06:21 | XRay Report ---
CHEST 1 VIEW INDICATION / CLINICAL INFORMATION: Chest Pain. COMPARISON: 08/20/2017 FINDINGS: SUPPORT DEVICES: None. HEART / MEDIASTINUM: Unchanged LUNGS / PLEURA: No significant pulmonary or pleural abnormality.. No pneumothorax. ADDITIONAL FINDINGS: No significant additional findings. IMPRESSION: 1. No acute findings. Signer Name: Jostin Whipple MD Signed: 02/22/2020 6:17 AM Workstation Name: [id number]
[2020-02-22 06:33] LABS: BUN/Creatinine Ratio 17; Blood Urea Nitrogen 24 mg/dL (9-20); Calcium 9.4 mg/dL (8.4-10.2); Hemolysis Index 12
--- NOTE | 2020-02-22 07:02 | Emergency Department Report ---
ED Chest Pain HPI - General Chief Complaint: Chest Pain Stated Complaint: CHEST PAIN Time Seen by Provider: 02/22/20 06:12 Source: patient, EMS Mode of arrival: Stretcher Limitations: No Limitations - History of Present Illness Initial Comments: This is a 74-year-old -[place] male presents to the emergency department via EMS from home with a complaint of midsternal pressure-like chest pain that has been going on over the past 3 to 4 days. The patient woke up Wednesday and noticed the pain when he was going to the bathroom. He went to his emergency dispatcher, Dr. Huizar, later that day and says that he had an EKG and was set up to return for a stress test. The patient says that the pain occurred again Wednesday upon waking. He did go in for his stress test yesterday but says that "I was dehydrated and they could not do the test." He supposed to return later today to attempt the stress test again but his pain worsened last night and this morning so he came in for further evaluation. Patient says that he took some nitroglycerin Mesha night that helped his pain at that time. Last night he took 2 nitroglycerin but says that it did not help this time. He also took a full dose aspirin this morning. He has a past medical history that includes coronary artery disease with CABG in 2011, and has a history of colon cancer in remission. He denies any fever, nausea, vomiting, back pain, shortness of breath, lower extremity swelling. No recent travel or sick contacts at home. Pain worsens when laying flat. Currently his pain is 5 out of 10 in intensity. - Related Data Home Medications Medication Instructions Recorded Confirmed Last Taken Aspirin 325 mg PO QDAY 08/02/17 02/22/20 3 Weeks Ago ~10/17/18 Metoprolol [Lopressor TAB] 25 mg PO DAILY 08/02/17 02/22/20 11/07/18 07:00 AtorvaSTATin [Lipitor] 40 mg PO QHS 10/06/18 02/22/20 11/05/18 Latanoprost 0.005% 1 drop OP QPM 10/06/18 02/22/20 11/06/18 Olmesartan/Hydrochlorothiazide 1 each PO DAILY 10/06/18 02/22/20 11/05/18 [Olmesartan-Hctz 20-12.5 mg Tab] Nitroglycerin [Nitrostat] 0.4 mg SL Q5M PRN 02/22/20 02/22/20 Unknown Allergies Allergy/AdvReac Type Severity Reaction Status Date / Time No Known Allergies Allergy Verified 10/06/18 09:34 Heart Score - HEART Score History: Moderately suspicious EKG: Non-specific Age: > 65 Risk factors: > 3 risk factors or hx of atherosclerotic disease Troponin: < normal limit HEART Score: 6 - Critical Actions Critical Actions: 4-6 pts:12-16.6% risk of adverse cardiac event. Should be admitted ED Review of Systems ROS: Stated complaint: CHEST PAIN Other details as noted in HPI Comment: All other systems reviewed and negative Constitutional: denies: chills, fever Eyes: denies: eye pain, vision change ENT: denies: ear pain, throat pain Respiratory: denies: cough, shortness of breath Cardiovascular: chest pain. denies: palpitations Gastrointestinal: denies: abdominal pain, vomiting Genitourinary: denies: dysuria, discharge Musculoskeletal: denies: joint swelling, arthralgia Skin: denies: rash, lesions Neurological: denies: headache, weakness ED Past Medical Hx - Past Medical History Previous Medical History?: Yes Hx Hypertension: Yes Hx Heart Attack/AMI: No Hx Congestive Heart Failure: No Hx Diabetes: Yes Hx Deep Vein Thrombosis: No Hx Pulmonary Embolism: No Hx Liver Disease: No Hx Renal Disease: No Hx of Cancer: Yes (in remission since 2016) Hx Sickle Cell Disease: No Hx Arthritis: No Hx Headaches / Migraines: Yes (MIGRAINES CHILD) Hx Seizures: No Hx Kidney Stones: Yes Hx Asthma: No Hx COPD: No Hx HIV: No Additional medical history: dysuria, Abd distention and constipation - Surgical History Past Surgical History?: Yes Hx Open Heart Surgery: Yes (CABG 2011) Hx Pacemaker: No Hx Internal Defibrillator: No Hx Cholecystectomy: No Hx Appendectomy: No Hx Breast Surgery: No - Social History Smoking Status: Never Smoker Substance Use Type: None - Medications Home Medications: Home Medications Medication Instructions Recorded Confirmed Last Taken Type Aspirin 325 mg PO QDAY 08/02/17 02/22/20 3 Weeks Ago History ~10/17/18 Metoprolol [Lopressor TAB] 25 mg PO DAILY 08/02/17 02/22/20 11/07/18 07:00 History AtorvaSTATin [Lipitor] 40 mg PO QHS 10/06/18 02/22/20 11/05/18 History Latanoprost 0.005% 1 drop OP QPM 10/06/18 02/22/20 11/06/18 History Olmesartan/Hydrochlorothiazide 1 each PO DAILY 10/06/18 02/22/20 11/05/18 H istory [Olmesartan-Hctz 20-12.5 mg Tab] Nitroglycerin [Nitrostat] 0.4 mg SL Q5M PRN 02/22/20 02/22/20 Unknown History ED Physical Exam - General Limitations: No Limitations - Other Other exam information: GENERAL: The patient is well-developed well-nourished. HENT: Normocephalic. Atraumatic. Patient has moist mucous membranes. EYES: Extraocular motions are intact. NECK: Supple. Trachea is midline. CHEST/LUNGS: Clear to auscultation. There is no respiratory distress noted. HEART/CARDIOVASCULAR: Regular. There is no tachycardia. There is no murmur. ABDOMEN: Abdomen is soft, nontender. Patient has normal bowel sounds. SKIN: Skin is warm and dry. NEURO: The patient is awake, alert, and oriented. The patient is cooperative. The patient has no focal neurologic deficits. Normal speech. MUSCULOSKELETAL: There is no tenderness or deformity. ED Course Vital Signs 02/22/20 05:47 Temperature 97.8 F Pulse Rate 68 Respiratory 16 Rate Blood Pressure 126/70 O2 Sat by Pulse 100 Oximetry - Consultations Consultation #1: 02/22/20 07:[address] Jessica Vazquez, of [facility], and he is aware of the patient's presentation and plan for admission. They will consult on the patient. ION score - Ion Score Age > 65: (1) Yes Aspirin use within the Past 7 Days: (1) Yes 3 or more CAD Risk Factors: (1) Yes 2 or more Angina events in past 24 hrs: (1) Yes Known CAD with more than 50% Stenosis: (0) No Elevated Cardiac Markers: (0) No ST Deviation Greater than 0.5mm: (0) No ION Score: 4 ED Medical Decision Making - Lab Data Result diagrams: 02/22/20 05:55 02/22/20 05:55 - EKG Data -: EKG Interpreted by Me - EKG Data Interpretation: other (3:1 AV block, normal axis, normal intervals, PACs, flattening of the T waves) - Radiology Data Radiology results: image reviewed interpreted by me: Chest x-ray does not show any acute process. There are no pleural effusions, obvious pneumonia and there is no pneumothorax. No significant cardiomegaly. - Medical Decision Making Mr. Harrell presents with midsternal chest pain that has been going on for the past 3 to 4 days. He has followed up outpatient with cardiology, but has not been able to get the stress test performed/completed. EKG this morning does not show any morphology consistent with ST elevation myocardial infarction. Chest x-ray does not show any pneumonia, pleural effusions, pneumothorax, focal cons olidation. The patient's labs have been mostly unremarkable including CBC, metabolic panel and a negative troponin. He has a moderate heart and ION score. Patient will be admitted to the hospital for further evaluation and treatment, cardiology consultation, and has been accepted for admission by the hospitalist service. Critical Care Time: No Critical care attestation.: If time is entered above; I have spent that time in minutes in the direct care of this critically ill patient, excluding procedure time. ED Disposition Clinical Impression: Acute chest pain, History of coronary artery disease Disposition: OP ADMIT IP TO THIS HOSP Is pt being admited?: Yes Condition: Serious Time of Disposition: 07:30
[2020-02-22] MEDS ORDERED: NITROGLYCERIN 0.4 MG TAB SUBL SL PRN (07:49)
[2020-02-22] MEDS ORDERED: ACETAMINOPHEN 325 MG TAB PO PRN (07:52)
[2020-02-22] MEDS ORDERED: MORPHINE 4 MG/1 ML INJ IV PRN (07:52)
[2020-02-22] MEDS ORDERED: traMADol 50 MG TAB PO PRN (07:52)
--- NOTE | 2020-02-22 07:59 | History and Physical Report ---
<LOUISA AKINS - Last Filed: 02/22/20 10:34> History of Present Illness Chief complaint: chest pain History of present illness: This is a 74-year-old male with CAD s/p CABG (2010 or 2011), HTN, glaucoma, DM, colon cancer in remission (2017) s/p colostomy reversal in 2019 who presents to the emergency department on 02/21 via EMS with midsternal pressure-like chest pain which started after waking up on Wednesday morning. The pain was 8/10, intermittent with radiation to his left jaw without any associated nausea, vomiting or diaphoresis which worsened when patient is laying flat. He curre ntly rates his pain at a 4-5/10. He received relief with nitroglycerin over the past couple days however he did not get any relief from 2 nitroglycerin today. 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 This was not performed because he was "dehydrated" and was to return to have a stress test today however his pain worsened therefore he presented to the emergency department. He also took a full dose aspirin this morning. Patient reports decreased p.o. intake over the past couple days. He denies any fevers, chills, hemoptysis, cough, night sweats, fatigue, unintentional weight loss, sick contacts or known exposure to COVID-19. Work-up in the emergency department included an ECG and labs which revealed a 3:1 AV block with PACs and elevated creatinine at 1.4 (baseline 0.8-1.2). Cardiology was consulted in the emergency department. He will be admitted to the hospitalist service for work-up of his chest pain. Prior visits reviewed, home medications reconciled and advanced care planning conducted in the ED. Past History Past Medical History: CAD, cancer, diabetes, hypertension, other (Glaucoma) Past Surgical History: CABG, Other (Colostomy creation and subsequent reversal) Social history: , lives with family, full code. denies: smoking, alcohol abuse, prescription drug abuse Family history: CAD, hypertension Medications and Allergies Allergies Allergy/AdvReac Type Severity Reaction Status Date / Time No Known Allergies Allergy Verified 10/06/18 09:34 Home Medications Medication Instructions Recorded Confirmed Last Taken Type Aspirin 325 mg PO QDAY 08/02/17 02/22/20 3 Weeks Ago History ~10/17/18 Metoprolol [Lopressor TAB] 25 mg PO DAILY 08/02/17 02/22/20 11/07/18 07:00 History AtorvaSTATin [Lipitor] 40 mg PO QHS 10/06/18 02/22/20 11/05/18 History Latanoprost 0.005% 1 drop OP QPM 10/06/18 02/22/20 11/06/18 History Olmesartan/Hydrochlorothiazide 1 each PO DAILY 10/06/18 02/22/20 11/05/18 History [Olmesartan-Hctz 20-12.5 mg Tab] Acetaminophen [Acetaminophen TAB] 650 mg PO Q6H PRN tablet 02/22/20 Unknown Rx Aspirin 325 mg PO QDAY tablet 02/22/20 Unknown Rx Docusate Sodium [Colace CAP] 100 mg PO BID capsule 02/22/20 Unknown Rx ISOSORBIDE MONOnitrate [Imdur ER] 30 mg PO QDAY #30 tablet 02/22/20 Unknown Rx Nitroglycerin [Nitrostat] 0.4 mg SL Q5M PRN 02/22/20 02/22/20 Unknown History Active Meds: Active Medications Acetaminophen (Tylenol) 650 mg PO Q6H PRN PRN Reason: Pain, Mild (1-3) Aspirin (Aspirin) 325 mg PO QDAY [facility] Atorvastatin Calcium (Lipitor) 40 mg PO QHS [facility] Metoprolol Tartrate (Metoprolol) 25 mg PO DAILY [facility] Morphine Sulfate (Morphine) 2 mg IV Q5MIN PRN PRN Reason: Chest Pain Nitroglycerin (Nitrostat) 0.4 mg SL Q5M PRN PRN Reason: chest pain Sodium Chloride (Sodium Chloride Flush Syringe 10 Ml) 10 ml IV PRN PRN PRN Reason: LINE FLUSH Sodium Chloride (Nacl 0.9%) 75 ml IV DIRECT [facility]I Tramadol HCl (Ultram) 50 mg PO Q6H PRN PRN Reason: Pain, Moderate (4-6) Review of Systems Constitutional: no weight loss, no weight gain, no fever, no chills, no sweats, no night sweats, no anorexia, no fatigue, no weakness, no malaise, no lethargy Ears, nose, mouth and throat: post-nasal drip, no ear pain, no ear discharge, no tinnitis, no decreased hearing, no nose pain, no nasal congestion, no nasal discharge, no sinus pressure, no sinus pain, no epistaxis, no bleeding gums, no dental pain, no mouth pain, no dysphagia, no hoarseness, no sore throat, no neck fullness/pressure Cardiovascular: chest pain, high blood pressure, leg edema, no orthopnea, no palpitations, no rapid/irregular heart beat, no syncope, no lightheadedness, no shortness of breath, no dyspnea on exertion, no paroxysmal nocturnal dyspnea Respiratory: cough, no hemoptysis, no shortness of breath, no dyspnea on e xertion, no congestion, no wheezing, no pleurisy Gastrointestinal: constipation, no abdominal pain, no nausea, no vomiting, no diarrhea, no change in bowel habits, no hematemesis, no coffee ground emesis, no BRBPR, no melena, no hematochezia, no loss of appetite, no early satiety, no heartburn, no indigestion Genitourinary Male: no dysuria, no hematuria, no flank pain, no discharge, no urinary frequency, no urinary hesitancy, no nocturia, no incontinence, no erectile dysfunction Rectal: hemorrhoids, no pain, no incontinence, no bleeding Musculoskeletal: no neck stiffness, no neck pain, no shooting arm pain, no arm numbness/tingling, no low back pain, no shooting leg pain, no leg numbness/tin gling, no redness of joints, no hot joints, no morning stiffness, no muscle weakness, no muscle cramps, no frequent falls, no fractures Integumentary: depigmentation (To upper chest and shoulder area since childhood), no pruritis, no redness, no sores, no wounds, no jaundice, no growths, no change in hair/nails, no brittle nails, no striae, no hirsutism, no foot/leg ulcers Neurological: migraines (As a child), no head injury, no transient paralysis, no paralysis, no weakness, no parathesias, no numbness, no tingling, no seizures, no syncope, no tremors, no vertigo, no headaches, no convulsions, no confusion, no sensory deficit, no double vision, no loss of vision, no hearing difficulties Psychiatric: no anxiety, no memory loss, no change in sleep habits, no sleep disturbances, no suicidal ideation, no disorientation, no hallucinations Endocrine: no cold intolerance, no heat intolerance, no polyphagia, no excessive thirst, no polydipsia, no polyuria, no nocturia, no excessive sweating, no weight change, no palpatations, no high blood sugars Hematologic/Lymphatic: no easy bruising, no easy bleeding Allergic/Immunologic: no urticaria, no allergic rhinitis, no persistent infections Exam - Constitutional Vitals: Temp Pulse Resp BP Pulse Ox 97.8 F 68 16 126/70 100 02/22/20 05:47 02/22/20 05:47 02/22/20 05:47 02/22/20 05:47 02/22/20 05:47 General appearance: Present: no acute distress - EENT Eyes: Present: PERRL, EOM intact ENT: hearing decreased, poor dentition - Neck Neck: Present: supple, normal ROM - Respiratory Respiratory effort: normal Respiratory: bilateral: CTA - Cardiovascular Rhythm: regular Heart Sounds: Present: S1 & S2. Absent: systolic murmur, diastolic murmur - Extremities Extremities: no ischemia, pulses intact, pulses symmetrical, No edema, normal temperature, normal color, Full ROM Peripheral Pulses: within normal limits - Abdominal General gastrointestinal: Present: soft, non-tender, non-distended, normal bowel sounds - Integumentary Integumentary: Present: clear, warm, dry - Musculoskeletal Musculoskeletal: strength equal bilaterally - Psychiatric Psychiatric: cooperative - Neurologic Neurologic: CNII-XII intact, no focal deficits, moves all extremities HEART Score - HEART Score History: Highly suspicious EKG: Non-specific Age: > 65 Risk factors: > 3 risk factors or hx of atherosclerotic disease Troponin: Troponin T < 0.010 ng/mL (0.00-0.029) 02/22/20 05:55 Troponin: < normal limit HEART Score: 7 - Critical Actions Critical Actions: >7 pts:50-65% risk of adverse cardiac event. Early invasive measures Results - Labs CBC & Chem 7: 02/22/20 05:55 02/22/20 05:55 Labs: Laboratory Last Values WBC 6.4 K/mm3 (4.5-11.0) 02/22/20 05:55 RBC 3.60 M/mm3 (3.65-5.03) L 02/22/20 05:55 Hgb 12.5 gm/dl (11.8-15.2) 02/22/20 05:55 Hct 37.1 % (35.5-45.6) 02/22/20 05:55 MCV 103 fl (84-94) H 02/22/20 05:55 MCH 35 pg (28-32) H 02/22/20 05:55 MCHC 34 % (32-34) 02/22/20 05:55 RDW 13.1 % (13.2-15.2) L 02/22/20 05:55 Plt Count 158 K/mm3 (140-440) 02/22/20 05:55 Lymph % (Auto) 17.7 % (13.4-35.0) 02/22/20 05:55 [place] % (Auto) 7.7 % (0.0-7.3) H 02/22/20 05:55 Eos % (Auto) 0.4 % (0.0-4.3) 02/22/20 05:55 Baso % (Auto) 0.5 % (0.0-1.8) 02/22/20 05:55 Lymph # (Auto) 1.1 K/mm3 (1.2-5.4) L 02/22/20 05:55 [place] # (Auto) 0.5 K/mm3 (0.0-0.8) 02/22/20 05:55 Eos # (Auto) 0.0 K/mm3 (0.0-0.4) 02/22/20 05:55 Baso # (Auto) 0.0 K/mm3 (0.0-0.1) 02/22/20 05:55 Seg Neutrophils % 73.7 % (40.0-70.0) H 02/22/20 05:55 Seg Neutrophils # 4.7 K/mm3 (1.8-7.7) 02/22/20 05:55 Sodium 140 mmol/L (137-145) 02/22/20 05:55 Potassium 3.8 mmol/L (3.6-5.0) 02/22/20 05:55 Chloride 100.9 mmol/L (98-107) 02/22/20 05:55 Carbon Dioxide 26 mmol/L (22-30) 02/22/20 05:55 Anion Gap 17 mmol/L 02/22/20 05:55 BUN 24 mg/dL (9-20) H 02/22/20 05:55 Creatinine 1.4 mg/dL (0.8-1.3) H 02/22/20 05:55 Estimated GFR 60 ml/min 02/22/20 05:55 BUN/Creatinine Ratio 17 % 02/22/20 05:55 Glucose 185 mg/dL (75-100) H 02/22/20 05:55 Calcium 9.4 mg/dL (8.4-10.2) 02/22/20 05:55 Troponin T < 0.010 ng/mL (0.00-0.029) 02/22/20 05:55 - Imaging and Cardiology Chest x-ray: report reviewed, image reviewed - Diagnostic Impressions Diagnostic Impressions: 02/21 CXR: No acute findings Assessment and Plan VTE prophylaxis?: Chemical, Mechanical Plan of care discussed with patient/family: Yes - Patient Problems (1) ACS (acute coronary syndrome) Current Visit: Yes Status: Acute Plan to address problem: r/o ACS Cardiology consulted Serial troponins 02/21 stress test Serial EKGs Morphine and nitroglycerin as needed Telemetry monitoring ASA, statin, beta-seda restarted (2) Vasomotor nephropathy Current Visit: Yes Status: Acute Plan to address problem: Admit BUN/creatinine 1.4/24 Upon reviewing prior admissions his baseline Cr seems to be 0.8-1.2 Gentle IV hydration Trend BMP Avoid nephrotoxic medications (3) History of coronary artery disease Current Visit: Yes Status: Chronic Plan to address problem: S/p CABG Restarted home statin, aspirin, beta-seda (4) HTN (hypertension) Current Visit: No Status: Chronic Qualifiers: Hypertension type: essential hypertension Qualified Code(s): I10 - Essential (primary) hypertension Plan to address problem: Restarted home antihypertensive regimen Blood pressure monitor per protocol (5) Diabetes mellitus Current Visit: Yes Status: Chronic Plan to address problem: Hemoglobin A1c pending [facility] Cardiac CC diet Hypoglycemia protocol (6) DVT prophylaxis Current Visit: No Status: Acute Plan to address problem: SCDs to bilateral lower extremities while in bed Heparin <KAYLEN BLUNT - Last Filed: 02/22/20 18:18> History of Present Illness Date of examination: 02/22/20 Date of admission: 02/22/20 07:30 Medications and Allergies Active Meds: Active Medications Acetaminophen (Tylenol) 650 mg PO Q6H PRN PRN Reason: Pain, Mild (1-3) Aspirin (Aspirin) 325 mg PO QDAY [facility] Last Admin: 02/22/20 10:33 Dose: 325 mg Documented by: Atorvastatin Calcium (Lipitor) 40 mg PO QHS [facility] Dextrose (D50w (25gm) Syringe) 50 ml IV Q30MIN PRN; Protocol PRN Reason: Hypoglycemia Docusate Sodium (Colace) 100 mg PO BID [facility] Last Admin: 02/22/20 10:33 Dose: 100 mg Documented by: Famotidine (Pepcid) 20 mg PO BID [facility] Last Admin: 02/22/20 10:33 Dose: 20 mg Documented by: Heparin Sodium (Porcine) (Heparin) 5,000 unit SUB-Q Q8HR [facility] Last Admin: 02/22/20 14:17 Dose: 5,000 unit Documented by: Sodium Chloride (Nacl 0.9% 1000 Ml) 1,000 mls @ 75 mls/hr IV DIRECT [facility] Last Admin: 02/22/20 08:20 Dose: 75 mls/hr Documented by: Insulin Human Regular (Humulin R) 0 unit SUB-Q ACHS [facility]; Protocol Last Admin: 02/22/20 14:22 Dose: 1 unit Documented by: Isosorbide Mononitrate (Imdur) 30 mg PO QDAY [facility] Latanoprost (Latanoprost 0.005%) 1 drops OU QPM [facility] Metoprolol Tartrate (Metoprolol) 25 mg PO DAILY [facility] Last Admin: 02/22/20 10:33 Dose: 25 mg Documented by: Morphine Sulfate (Morphine) 2 mg IV Q5MIN PRN PRN Reason: Chest Pain Nitroglycerin (Nitrostat) 0.4 mg SL Q5M PRN PRN Reason: chest pain Ondansetron HCl (Zofran) 4 mg IV Q8H PRN PRN Reason: Nausea And Vomiting Last Admin: 02/22/20 14:30 Dose: 4 mg Documented by: Senna (Senokot) 8.6 mg PO Q12HR [facility] Last Admin: 02/22/20 14:22 Dose: Not Given Documented by: Sodium Chloride (Sodium Chloride Flush Syringe 10 Ml) 10 ml IV PRN PRN PRN Reason: LINE FLUSH Tramadol HCl (Ultram) 50 mg PO Q6H PRN PRN Reason: Pain, Moderate (4-6) Exam - Constitutional Vitals: Temp Pulse Resp BP Pulse Ox 97.8 F 63 15 132/60 91 02/22/20 05:47 02/22/20 10:30 02/22/20 10:30 02/22/20 12:34 02/22/20 12:34 HEART Score - HEART Score Troponin: Troponin T < 0.010 ng/mL (0.00-0.029) 02/22/20 05:55 Results - Labs CBC & Chem 7: 02/22/20 05:55 02/22/20 05:55 Labs: Laboratory Last Values WBC 6.4 K/mm3 (4.5-11.0) 02/22/20 05:55 RBC 3.60 M/mm3 (3.65-5.03) L 02/22/20 05:55 Hgb 12.5 gm/dl (11.8-15.2) 02/22/20 05:55 Hct 37.1 % (35.5-45.6) 02/22/20 05:55 MCV 103 fl (84-94) H 02/22/20 05:55 MCH 35 pg (28-32) H 02/22/20 05:55 MCHC 34 % (32-34) 02/22/20 05:55 RDW 13.1 % (13.2-15.2) L 02/22/20 05:55 Plt Count 158 K/mm3 (140-440) 02/22/20 05:55 Lymph % (Auto) 17.7 % (13.4-35.0) 02/22/20 05:55 [place] % (Auto) 7.7 % (0.0-7.3) H 02/22/20 05:55 Eos % (Auto) 0.4 % (0.0-4.3) 02/22/20 05:55 Baso % (Auto) 0.5 % (0.0-1.8) 02/22/20 05:55 Lymph # (Auto) 1.1 K/mm3 (1.2-5.4) L 02/22/20 05:55 [place] # (Auto) 0.5 K/mm3 (0.0-0.8) 02/22/20 05:55 Eos # (Auto) 0.0 K/mm3 (0.0-0.4) 02/22/20 05:55 Baso # (Auto) 0.0 K/mm3 (0.0-0.1) 02/22/20 05:55 Seg Neutrophils % 73.7 % (40.0-70.0) H 02/22/20 05:55 Seg Neutrophils # 4.7 K/mm3 (1.8-7.7) 02/22/20 05:55 Sodium 140 mmol/L (137-145) 02/22/20 05:55 Potassium 3.8 mmol/L (3.6-5.0) 02/22/20 05:55 Chloride 100.9 mmol/L (98-107) 02/22/20 05:55 Carbon Dioxide 26 mmol/L (22-30) 02/22/20 05:55 Anion Gap 17 mmol/L 02/22/20 05:55 BUN 24 mg/dL (9-20) H 02/22/20 05:55 Creatinine 1.4 mg/dL (0.8-1.3) H 02/22/20 05:55 Estimated GFR 60 ml/min 02/22/20 05:55 BUN/Creatinine Ratio 17 % 02/22/20 05:55 Glucose 185 mg/dL (75-100) H 02/22/20 05:55 POC Glucose 155 mg/dL (70-105) H 02/22/20 17:40 Hemoglobin A1c 7.5 % (4-6) H 02/22/20 08:58 Calcium 9.4 mg/dL (8.4-10.2) 02/22/20 05:55 Troponin T < 0.010 ng/mL (0.00-0.029) 02/22/20 05:55 NT-Pro-B Natriuret Pep 67.51 pg/mL (0-900) 02/22/20 08:58
[2020-02-22] MEDS ORDERED: SODIUM CHLORIDE 0.9% 100 ML IVPB IV SCH (08:00)
[2020-02-22] MEDS ORDERED: SODIUM CHLORIDE 0.9% 1000 ML 1,000 ML IV SCH (08:15)
[2020-02-22] MEDS ORDERED: ONDANSETRON 4 MG/2 ML INJ IV PRN (09:30)
[2020-02-22] MEDS ORDERED: DEXTROSE 50% IN WATER (25GM) 50 ML SYRINGE IV PRN (09:30)
[2020-02-22] MEDS ORDERED: ASPIRIN 325 MG TAB PO SCH (10:00)
[2020-02-22] MEDS ORDERED: FAMOTIDINE 20 MG TAB PO SCH (10:00)
[2020-02-22] MEDS ORDERED: DOCUSATE SODIUM 100 MG CAP PO SCH (10:00)
[2020-02-22] MEDS ORDERED: METOPROLOL TARTRATE 25 MG TAB PO SCH (10:00)
[2020-02-22] MEDS ORDERED: SENNOSIDES 8.6 MG TAB PO SCH (10:00)
[2020-02-22] MEDS ORDERED: ASPIRIN 325 MG TAB ONE (10:23)
[2020-02-22] MEDS ORDERED: FAMOTIDINE 20 MG TAB ONE (10:23)
[2020-02-22] MEDS ORDERED: DOCUSATE SODIUM 100 MG CAP ONE (10:24)
[2020-02-22] MEDS ORDERED: METOPROLOL TARTRATE 25 MG TAB ONE (10:24)
--- NOTE | 2020-02-22 11:05 | Consultation ---
History of Present Illness Consult date: 02/22/20 Requesting physician: ANA ADDISON Consult reason: chest pain History of present illness: The pt is a 74 YO male with a past medical history of CAD s/p CABG (2010 in [place], [place]), colon CA s/p resection in 2017, HTN, HLP, DJD. He is followed in our office by Dr. PARUL Ovalle. However, he was seen by Dr. Huizar on 02/01 with c/o chest pain. He has not experienced chest pain for quite a few years. However, he woke up on Wednesday morning and went to the bathroom and after returning back to his room, he started experiencing substernal chest pressure with no radiation. There were no other associated symptoms. However, symptoms lasted for a few hours. He was seen in our office and scheduled for lexiscan MPI stress test. He presented to our office yesterday for stress testing but was unable to complete the test because IV access could not be obtained. Pt's chest pain returned intermittently overnight, took SL nitro x 2 with no relief, and thus he decided to seek medical attention. Overnight, pt did note that the pain radiated into his jaw. He denies any SOB, palpitations, n/v, diaphoresis, dizziness or syncope. tte done 08/2018 showed EF 50%, mild MR, TR, and MO. Lexiscan MPI stress test done 08/2018 showed mild mid septal partial reversibility, EF 59%. Past History Past Medical History: CAD, cancer, diabetes, hypertension, other (Glaucoma) Past Surgical History: CABG, Other (Colostomy creation and subsequent reversal) Social history: , lives with family, full code. denies: smoking, alcohol abuse, prescription drug abuse Family history: CAD, hypertension Medications and Allergies Allergies Allergy/AdvReac Type Severity Reaction Status Date / Time No Known Allergies Allergy Verified 10/06/18 09:34 Home Medications Medication Instructions Recorded Confirmed Last Taken Type Aspirin 325 mg PO QDAY 08/02/17 02/22/20 3 Weeks Ago History ~10/17/18 Metoprolol [Lopressor TAB] 25 mg PO DAILY 08/02/17 02/22/20 11/07/18 07:00 History AtorvaSTATin [Lipitor] 40 mg PO QHS 10/06/18 02/22/20 11/05/18 History Latanoprost 0.005% 1 drop OP QPM 10/06/18 02/22/20 11/06/18 History Olmesartan/Hydrochlorothiazide 1 each PO DAILY 10/06/18 02/22/20 11/05/18 History [Olmesartan-Hctz 20-12.5 mg Tab] Nitroglycerin [Nitrostat] 0.4 mg SL Q5M PRN 02/22/20 02/22/20 Unknown History Active Meds: Active Medications Acetaminophen (Tylenol) 650 mg PO Q6H PRN PRN Reason: Pain, Mild (1-3) Aspirin (Aspirin) 325 mg PO QDAY [facility] Last Admin: 02/22/20 10:33 Dose: 325 mg Documented by: Atorvastatin Calcium (Lipitor) 40 mg PO QHS [facility] Dextrose (D50w (25gm) Syringe) 50 ml IV Q30MIN PRN; Protocol PRN Reason: Hypoglycemia Docusate Sodium (Colace) 100 mg PO BID [facility] Last Admin: 02/22/20 10:33 Dose: 100 mg Documented by: Famotidine (Pepcid) 20 mg PO BID [facility] Last Admin: 02/22/20 10:33 Dose: 20 mg Documented by: Heparin Sodium (Porcine) (Heparin) 5,000 unit SUB-Q Q8HR [facility] Sodium Chloride (Nacl 0.9% 1000 Ml) 1,000 mls @ 75 mls/hr IV DIRECT [facility] Insulin Human Regular (Humulin R) 0 unit SUB-Q ACHS [facility]; Protocol Latanoprost (Latanoprost 0.005%) 1 drops OU QPM [facility] Metoprolol Tartrate (Metoprolol) 25 mg PO DAILY [facility] Last Admin: 02/22/20 10:33 Dose: 25 mg Documented by: Morphine Sulfate (Morphine) 2 mg IV Q5MIN PRN PRN Reason: Chest Pain Nitroglycerin (Nitrostat) 0.4 mg SL Q5M PRN PRN Reason: chest pain Ondansetron HCl (Zofran) 4 mg IV Q8H PRN PRN Reason: Nausea And Vomiting Senna (Senokot) 8.6 mg PO Q12HR [facility] Sodium Chloride (Sodium Chloride Flush Syringe 10 Ml) 10 ml IV PRN PRN PRN Reason: LINE FLUSH Tramadol HCl (Ultram) 50 mg PO Q6H PRN PRN Reason: Pain, Moderate (4-6) Review of Systems Constitutional: no weight loss, no weight gain, no fever, no chills, no sweats Ears, nose, mouth and throat: no ear pain, no nose pain, no sinus pressure, no sinus pain Cardiovascular: chest pain, no orthopnea, no palpitations, no rapid/irregular heart beat, no edema, no syncope, no lightheadedness, no shortness of breath, no dyspnea on exertion Respiratory: no cough, no shortness of breath, no dyspnea on exertion, no congestion, no wheezing, no pain on inspiration Gastrointestinal: no abdominal pain, no nausea, no vomiting, no diarrhea, no constipation, no change in bowel habits Genitourinary Male: no dysuria, no hematuria, no flank pain, no discharge, no urinary frequency, no urinary hesitancy Musculoskeletal: no neck stiffness, no neck pain, no shooting arm pain, no arm numbness/tingling, no low back pain, no shooting leg pain Integumentary: no rash, no pruritis, no redness, no sores, no wounds Neurological: no head injury, no paralysis, no weakness, no parathesias, no numbness, no tingling, no seizures, no syncope Psychiatric: no anxiety Endocrine: no cold intolerance, no heat intolerance Hematologic/Lymphatic: no easy bruising, no easy bleeding Allergic/Immunologic: no urticaria Physical Examination Vital Signs Temp Pulse Resp BP Pulse Ox 97.8 F 68 16 126/70 100 02/22/20 05:47 02/22/20 05:47 02/22/20 05:47 02/22/20 05:47 02/22/20 05:47 General appearance: no acute distress HEENT: Positive: Normocephaly, Mucus Membranes Moist Neck: Positive: neck supple, trachea midline Cardiac: Positive: Reg Rate and Rhythm, S1/S2 Lungs: Positive: Decreased Breath Sounds Neuro: Positive: Grossly Intact Abdomen: Negative: Tender Skin: Negative: Rash Musculoskeletal: No Pain Extremities: Absent: edema Results 02/22/20 05:55 02/22/20 05:55 CBC 02/22/20 Range/Units 05:55 WBC 6.4 (4.5-11.0) K/mm3 RBC 3.60 L (3.65-5.03) M/mm3 Hgb 12.5 (11.8-15.2) gm/dl Hct 37.1 (35.5-45.6) % Plt Count 158 (140-440) K/mm3 Lymph # (Auto) 1.1 L (1.2-5.4) K/mm3 Clay # (Auto) 0.5 (0.0-0.8) K/mm3 Eos # (Auto) 0.0 (0.0-0.4) K/mm3 Baso # (Auto) 0.0 (0.0-0.1) K/mm3 Comprehensive Metabolic Panel 02/22/20 Range/Units 05:55 Sodium 140 (137-145) mmol/L Potassium 3.8 (3.6-5.0) mmol/L Chloride 100.9 (98-107) mmol/L Carbon Dioxide 26 (22-30) mmol/L BUN 24 H (9-20) mg/dL Creatinine 1.4 H (0.8-1.3) mg/dL Glucose 185 H (75-100) mg/dL Calcium 9.4 (8.4-10.2) mg/dL - Imaging and Cardiology Echo: report reviewed (08/2018 showed EF 50%, mild MR, TR, and MO. ) EKG: report reviewed, image reviewed EKG interpretations - Telemetry EKG Rhythm: Sinus Rhythm - EKG Sinus rhythms and dysrhythmias: sinus rhythm Supraventricular dysrhythmia: atrial premature complexe Assessment and Plan Rahul negative for AMI, ECG with no acute ischemic changes. Proceed with lexiscan MPI stress test today. Await findings. The patient has been seen in conjunction with Dr. Schreiber who agrees with the assessment and plan of care. - Patient Problems (1) Chest pain Current Visit: Yes Status: Acute (2) CAD (coronary artery disease) Current Visit: Yes Status: Chronic (3) History of coronary artery bypass graft Current Visit: Yes Status: Chronic (4) HTN (hypertension) Current Visit: Yes Status: Chronic Qualifiers: Hypertension type: essential hypertension Qualified Code(s): I10 - Essential (primary) hypertension (5) Hyperlipidemia Current Visit: Yes Status: Chronic (6) History of colon cancer Current Visit: Yes Status: Chronic
[2020-02-22] MEDS ORDERED: INSULIN REGULAR, HUMAN 100 UNIT/ML 3ML VIAL SUB-Q SCH (11:30)
[2020-02-22] MEDS ORDERED: REGADENOSON 0.4 MG/5 ML INJ IV ONE ×2 (11:35→11:37)
--- NOTE | 2020-02-22 12:43 | Treadmill Report ---
NUCLEAR PERFUSION STUDY REASON FOR STUDY: Chest pain. READING PHYSICIAN: Chauncey Schreiber MD IMAGING PROTOCOL: The patient received 10 mCi of Technetium 99m Tetrofosmin for resting image and 28 mCi of Technetium 99m Tetrofosmin for stress imaging. The imaging for the whole procedure was completed 30-90 minutes following the initial injection of Technetium 99m Tetrofosmin. The SPECT imaging in the 180 degree arc was performed in the right anterior oblique projection. Computerized reconstruction of the images was performed for analysis. IMAGING RESULTS: Normal cavity size from stress to rest. Normal distribution of radionuclide in the anterior, inferior, septal, and apical regions. Gated SPECT, EF greater than 65% with no wall motion abnormality. The patient infused Lexiscan with no EKG changes. SUMMARY: 1. Negative Lexiscan EKG. 2. Normal rest and stress myocardial perfusion scan. No significant stress ischemia. No wall motion abnormality. Gated SPECT, EF greater than 65%. JOB# [id number] VRM/NTS
--- NOTE | 2020-02-22 13:47 | Discharge Summary ---
Providers - Providers Date of Admission: 02/22/20 07:30 Attending physician: KAYLEN BLUNT 02/22/20 Consult to Cardiac Rehabilitation [CONS] Routine Reason For Exam: Phase I 02/22/20 07:31 Consult to Cardiology [CONS] Routine Consulting Provider: JOSE LUCAS Reason For Exam: angina, acute chest pain Primary care physician: SHOE SPRAYER Hospitalization Condition: Stable Hospital course: This is a 74-year-old male with CAD s/p CABG (2010), HTN, glaucoma, DM, colon cancer s/p colon resection in 2016 and colostomy reversal in 2019, HTN, HLD, DJD who presents to the emergency department on 02/21 via EMS with midsternal pressure-like chest pain which started after waking up on Wednesday morning. The pain was 8/10, intermittent with radiation to his left jaw without any associated nausea, vomiting or diaphoresis which worsened when patient is laying flat. He currently rates his pain at a 4-5/10. He received relief with nitroglycerin over the past couple days however he did not get any relief from 2 nitroglycerin today. Patient went to his pressure test operator and had a EKG done on Wednesday and set up for a stress test on Wednesday. This was not performed because he was "dehydrated" and was to return to have a stress test today however his pain worsened therefore he presented to the emergency department. He also took a full dose aspirin this morning. Patient reports decreased p.o. intake over the past couple days. He denies any fevers, chills, hemoptysis, cough, night sweats, fatigue, unintentional weight loss, sick contacts or known exposure to COVID-19. Work-up in the emergency department included an ECG and labs which revealed a 3:1 AV block with PACs and elevated creatinine at 1.4 (baseline 0.8- 1.2). Cardiology was consulted in the emergency department. His stress test showed normal myocardial perfusion, atypical chest pain with urination and add imdur. He will need to followup with urology, aridology and his PCP within 1-2 weeks of discharge. - Patient Problems (1) Atypical Chest Pain Current Visit: Yes Status: Acute Plan to address problem: r/o ACS Cardiology consulted Serial troponins <0.01 02/21 stress test showed showed normal myocardial perfusion, Continue home regimen of aspirin, statin and BB and add Imdur Follow-up with cardiology outpatient within 1 to 2 weeks of discharge (2) Vasomotor nephropathy Current Visit: Yes Status: Acute Plan to address problem: Admit BUN/creatinine 1.4/24 Upon reviewing prior admissions his baseline Cr seems to be 0.8-1.2 Follow-up with your primary care physician within 1 to 2 weeks of discharge (3) History of coronary artery disease Current Visit: Yes Status: Chronic Plan to address problem: S/p CABG Restarted home statin, aspirin, beta-seda (4) HTN (hypertension) Current Visit: No Status: Chronic Qualifiers: Hypertension type: essential hypertension Qualified Code(s): I10 - Essential (primary) hypertension Plan to address problem: Continue your home antihypertensive regimen Blood pressure monitor per primary care physician instructions (5) Diabetes mellitus Current Visit: Yes Status: Chronic Plan to address problem: 02/21 Hemoglobin A1c 7.5 Resume home antidiabetic regimen Continue cardiac CC diet Blood pressure monitor per primary care physician Disposition: TO HOME OR SELFCARE Time spent for discharge: 35 Core Measure Documentation - Palliative Care Palliative Care/ Comfort Measures: Not Applicable - Core Measures Any of the following diagnoses?: history only Exam - Physical Exam Narrative exam: General appearance: Present: no acute distress - EENT Eyes: Present: PERRL, EOM intact ENT: hearing decreased, poor dentition - Neck Neck: Present: supple, normal ROM - Respiratory Respiratory effort: normal Respiratory: bilateral: CTA - Cardiovascular Rhythm: regular Heart Sounds: Present: S1 & S2. Absent: systolic murmur, diastolic murmur - Extremities Extremities: no ischemia, pulses intact, pulses symmetrical, No edema, normal temperature, normal color, Full ROM Peripheral Pulses: within normal limits - Abdominal General gastrointestinal: Present: soft, non-tender, non-distended, normal bowel sounds - Integumentary Integumentary: Present: clear, warm, dry - Musculoskeletal Musculoskeletal: strength equal bilaterally - Psychiatric Psychiatric: cooperative - Neurologic Neurologic: CNII-XII intact, no focal deficits, moves all extremities - Constitutional Vitals: Temp Pulse Resp BP Pulse Ox 97.8 F 63 15 132/60 91 02/22/20 05:47 02/22/20 10:30 02/22/20 10:30 02/22/20 12:34 02/22/20 12:34 Plan Activity: advance as tolerated Diet: low fat, low cholesterol, low salt, diabetic Special Instructions: record daily BP diary, record blood sugar diary Additional Instructions: Contact your primary care physician and might present to nearest emergency department if you experience worsening symptoms. Follow-up with your primary care physician and cardiology within 1 to 2 weeks of discharge. Follow-up with urology post discharge. Follow up with: PRIMARY CARE, [Primary Care Provider] - 3-5 Days CECILY BOWMAN MD [Staff Physician] - 7 Days BEN BUTLER MD [Staff Physician] - 7 Days Prescriptions: ISOSORBIDE MONOnitrate [Imdur ER] 30 mg PO QDAY #30 tablet
[2020-02-22] MEDS ORDERED: HEPARIN 5,000 UNIT/1 ML VIAL SUB-Q SCH (14:00)
[2020-02-22] MEDS ORDERED: HEPARIN 5,000 UNIT/1 ML VIAL ONE (14:12)
[2020-02-22] MEDS ORDERED: ONDANSETRON 4 MG/2 ML INJ ONE (14:26)
[2020-02-22] MEDS ORDERED: LATANOPROST 0.005% OPHTH SOLN 2.5 ML OU SCH (18:00)
[2020-02-22 19:56] VITALS: BP 122/59
== END 2020-02-22 20:45 | disposition home or self-care (01) ==
LOC: ED 05:26 → 4A 07:30
PROVIDERS: ADMIT Internal Medicine; ATTEND Internal Medicine
DX: I24.9 Acute ischemic heart disease, unspecified (principal); N17.0 Acute kidney failure with tubular necrosis; I25.10 Atherosclerotic heart disease of native coronary artery without angina pectoris; I10 Essential (primary) hypertension; E11.9 Type 2 diabetes mellitus without complications; H40.9 Unspecified glaucoma; E78.5 Hyperlipidemia, unspecified; Z86.79 Personal history of other diseases of the circulatory system; Z95.1 Presence of aortocoronary bypass graft; Z85.038 Personal history of other malignant neoplasm of large intestine; Z98.890 Other specified postprocedural states; Z79.82 Long term (current) use of aspirin; Z79.899 Other long term (current) drug therapy
CPT/HCPCS: 36415; 71045; 78452; 80048; 82962; 83036; 83880; 84484; 85025; 93005; 93017; 96361; 96372; 96374; 99285; A9502; G0378; J1644; J2405; J2785; J7030; J1815

== ENCOUNTER 2020-08-12 11:23 | Outpatient (CLI) | payer BC, MEDICARE ==
--- NOTE | 2020-08-12 16:15 | Cat Scan Report ---
CT ABDOMEN AND PELVIS WITH CONTRAST INDICATION / CLINICAL INFORMATION: History of colon cancer. TECHNIQUE: Axial CT images were obtained through the abdomen and pelvis after 100 cc Omnipaque [address] scans at this location are performed using CT dose reduction for ALARA by means of automated exposure control. COMPARISON: PET/CT dated 09/28/2019, CT abdomen and pelvis without contrast dated 08/21/2017 FINDINGS: LOWER CHEST: No significant abnormality. LIVER: There is generalized steatosis without other significant abnormalities. GALLBLADDER: No significant abnormality. BILE DUCTS: No significant abnormality. PANCREAS: No significant abnormality. SPLEEN: No significant abnormality. ADRENALS: The right adrenal gland is unremarkable. A probable left adrenal adenoma is unchanged and m easures 1.5 x 1.1 cm on image 44 of series 2. RIGHT KIDNEY / URETER: No acute abnormality. There is age-appropriate right renal cortical thinning. Right perinephric fat stranding is unchanged. LEFT KIDNEY / URETER: No acute abnormality. Left renal cortical thinning is noted with similar left p erinephric fat stranding. STOMACH / SMALL BOWEL: No significant abnormality. COLON: Postoperative changes are noted along the sigmoid colon without visualization of a mass or oth er significant abnormality. APPENDIX: No significant abnormality. PERITONEUM: No free fluid. No free air. No fluid collection. LYMPH NODES: No significant adenopathy. AORTA / ARTERIES: The aorta is normal in caliber with mild generalized atherosclerosis. IVC / VEINS: No significant abnormality. URINARY BLADDER: No significant abnormality. REPRODUCTIVE ORGANS: The prostate gland is similarly enlarged. No other significant abnormality. ADDITIONAL FINDINGS: There are similar uncomplicated fat-containing small inguinal hernias. Changes f rom a former left lower quadrant ostomy are noted along the abdominal wall. SKELETAL SYSTEM: No significant abnormality. IMPRESSION: 1. No acute abnormality or evidence of metastatic disease. 2. Additional findings as above. Signer Name: Niranjan Crow MD Signed: 08/12/2020 4:05 PM Workstation Name: [id number]
== END 2020-08-12 11:24 | disposition home or self-care (01) ==
LOC: CT 11:23
PROVIDERS: ATTEND Internal Medicine Hematology
DX: C18.7 Malignant neoplasm of sigmoid colon (principal); N40.0 Benign prostatic hyperplasia without lower urinary tract symptoms; K76.0 Fatty (change of) liver, not elsewhere classified; I70.0 Atherosclerosis of aorta; K40.90 Unilateral inguinal hernia, without obstruction or gangrene, not specified as recurrent
CPT/HCPCS: 36415; 74177; 82565; 84520; Q9967

== ENCOUNTER 2020-09-13 11:14 | Outpatient (CLI) | payer BC, MEDICARE ==
--- NOTE | 2020-09-13 13:36 | Vascular Lab Report ---
DUPLEX DOPPLER LOWER EXTREMITY VEINS, LEFT INDICATION: dvt. TECHNIQUE: Duplex doppler imaging was performed through the veins of the left lower extremity using venous compr ession and other maneuvers. COMPARISON: No relevant prior imaging study available. FINDINGS: Left Common femoral vein: Negative. Left Superficial femoral vein: Negative. Left Popliteal vein: Negative. Left Calf veins: Negative. Additional findings: None.. IMPRESSION: 1. No sonographic evidence for DVT in the left lower extremity. Signer Name: Cy Rojas MD Signed: 09/13/2020 1:32 PM Workstation Name: [id number]
== END 2020-09-13 11:15 | disposition home or self-care (01) ==
LOC: VAS 11:14
PROVIDERS: ATTEND Internal Medicine Hematology
DX: C18.7 Malignant neoplasm of sigmoid colon (principal)

== ENCOUNTER 2021-05-25 19:25 | Inpatient (IN) | payer MEDICARE ==
[2021-05-25] MEDS ORDERED: ASPIRIN 325 MG TAB PO ONE (19:50)
--- NOTE | 2021-05-25 20:28 | Emergency Department Report ---
ED Chest Pain HPI - General Chief Complaint: Chest Pain Stated Complaint: CHEST PAINS PUI?: No Time Seen by Provider: 05/25/21 20:05 Source: patient, RN notes reviewed, old records reviewed Mode of arrival: Ambulatory Limitations: No Limitations - History of Present Illness Initial Comments: The patient was evaluated in the emergency department for symptoms described in the history of present illness. He/she was evaluated in the context of the global COVID-19 pandemic, which necessitated consideration that the patient might be at risk for infection with the virus that causes COVID-19. Institutional protocols and algorithms that pertain to the evaluation of patients at risk for COVID-19 are in a state of rapid change based on information released by regulatory bodies including the CDC and federal and state organizations. These policies and algorithms were followed during the patient's care in the emergency department. Please note that these policies, procedures and recommendations changed on a rapid basis. Cardiology: [facility] cardiology Past medical history: CAD, status post CABG 2010 in [facility], history of colon cancer status postresection in 2017, prior PET scan is negative for metastatic disease, hypertension, hyperlipidemia, DJD. The patient is a 76-year-old gentleman who is presenting to the ER today with a complaint of intermittent centralized substernal chest pain. The pain does not radiate to the back, arms or neck. It decreases with rest and with nitroglycerin. He is compliant with aspirin. He denies vomiting or diaphoresis. He denies new/different shortness of breath. He denies travel, surgery, immobilization, leg pain or leg swelling. He does not recall recent cardiac catheterization or stress test. He states he is essentially pain-free at this time. Symptoms going on for the past few hours to 24 hours MD Complaint: chest pain -: Gradual, Sudden Onset: during rest Pain Location: substernal Pain Radiation: none Severity: moderate Quality: aching, heaviness Consistency: intermittent Improves With: nitroglycerin, rest Worsens With: exertion re: denies: nausea, vomting, diaphoresis Aspirin use within the Past 7 Days: (1) Yes - Related Data On Oral Contraceptives: No Home Medications Medication Instructions Recorded Confirmed Last Taken Aspirin 325 mg PO QDAY 08/02/17 02/22/20 3 Weeks Ago ~10/17/18 Metoprolol [Lopressor TAB] 25 mg PO DAILY 08/02/17 02/22/20 11/07/18 07:00 AtorvaSTATin [Lipitor] 40 mg PO QHS 10/06/18 02/22/20 11/05/18 Latanoprost 0.005% 1 drop OP QPM 10/06/18 02/22/20 11/06/18 Olmesartan/Hydrochlorothiazide 1 each PO DAILY 10/06/18 02/22/20 11/05/18 [Olmesartan-Hctz 20-12.5 mg Tab] Nitroglycerin [Nitrostat] 0.4 mg SL Q5M PRN 02/22/20 02/22/20 Unknown Previous Rx's Medication Instructions Recorded Last Taken Type Acetaminophen [Acetaminophen TAB] 650 mg PO Q6H PRN tablet 02/22/20 Unknown Rx Aspirin 325 mg PO QDAY tablet 02/22/20 Unknown Rx Docusate Sodium [Colace CAP] 100 mg PO BID capsule 02/22/20 Unknown Rx ISOSORBIDE MONOnitrate [Imdur ER] 30 mg PO QDAY #30 tablet 02/22/20 Unknown Rx Allergies Allergy/AdvReac Type Severity Reaction Status Date / Time No Known Allergies Allergy Verified 10/06/18 09:34 Heart Score - HEART Score History: Moderately suspicious EKG: Non-specific Age: > 65 Risk factors: > 3 risk factors or hx of atherosclerotic disease Troponin: < normal limit HEART Score: 6 - EKG Read Time Time EKG Completed: 19:43 EKG Read Time: 19:43 - Critical Actions Critical Actions: 4-6 pts:12-16.6% risk of adverse cardiac event. Should be admitted ED Review of Systems ROS: Stated complaint: CHEST PAINS Other details as noted in HPI Constitutional: denies: fever Eyes: denies: vision change Respiratory: shortness of breath Cardiovascular: chest pain Gastrointestinal: denies: abdominal pain, vomiting, hematemesis, melena, hematochezia Genitourinary: denies: dysuria Musculoskeletal: denies: back pain Neurological: weakness Hematological/Lymphatic: denies: easy bleeding ED Past Medical Hx - Past Medical History Previous Medical History?: Yes Hx Hypertension: Yes Hx Heart Attack/AMI: No Hx Congestive Heart Failure: No Hx Diabetes: Yes Hx Deep Vein Thrombosis: No Hx Pulmonary Embolism: No Hx Liver Disease: No Hx Renal Disease: No Hx of Cancer: Yes (Colon) Hx Sickle Cell Disease: No Hx Arthritis: No Hx Headaches / Migraines: Yes (MIGRAINES CHILD) Hx Seizures: No Hx Kidney Stones: Yes Hx Asthma: No Hx COPD: No Hx HIV: No Additional medical history: dysuria, Abd distention and constipation - Surgical History Past Surgical History?: Yes Hx Open Heart Surgery: Yes (CABG 2011) Hx Pacemaker: No Hx Internal Defibrillator: No Hx Cholecystectomy: No Hx Appendectomy: No Hx Breast Surgery: No Additional Surgical History: Colon - Social History Smoking Status: Never Smoker Substance Use Type: None - Medications Home Medications: Home Medications Medication Instructions Recorded Confirmed Last Taken Type Aspirin 325 mg PO QDAY 08/02/17 02/22/20 3 Weeks Ago History ~10/17/18 Metoprolol [Lopressor TAB] 25 mg PO DAILY 08/02/17 02/22/20 11/07/18 07:00 History AtorvaSTATin [Lipitor] 40 mg PO QHS 10/06/18 02/22/20 11/05/18 History Latanoprost 0.005% 1 drop OP QPM 10/06/18 02/22/20 11/06/18 History Olmesartan/Hydrochlorothiazide 1 each PO DAILY 10/06/18 02/22/20 11/05/18 History [Olmesartan-Hctz 20-12.5 mg Tab] Acetaminophen [Acetaminophen TAB] 650 mg PO Q6H PRN tablet 02/22/20 Unknown Rx Aspirin 325 mg PO QDAY tablet 02/22/20 Unknown Rx Docusate Sodium [Colace CAP] 100 mg PO BID capsule 02/22/20 Unknown Rx ISOSORBIDE MONOnitrate [Imdur ER] 30 mg PO QDAY #30 tablet 02/22/20 Unknown Rx Nitroglycerin [Nitrostat] 0.4 mg SL Q5M PRN 02/22/20 02/22/20 Unknown History ED Physical Exam - General Limitations: No Limitations General appearance: alert, in no apparent distress - Head Head exam: Present: atraumatic, normocephalic - Eye Eye exam: Present: normal appearance, EOMI. Absent: nystagmus - ENT ENT exam: Present: normal exam, normal orophraynx, mucous membranes moist, normal external ear exam - Neck Neck exam: Present: normal inspection, full ROM. Absent: tenderness, meningismus - Respiratory Respiratory exam: Present: normal lung sounds bilaterally. Absent: respiratory distress, wheezes, rales, rhonchi, stridor - Cardiovascular Cardiovascular Exam: Present: regular rate, normal rhythm, normal heart sounds. Absent: bradycardia, tachycardia, irregular rhythm, systolic murmur, diastolic murmur, rubs, gallop - GI/Abdominal GI/Abdominal exam: Present: soft. Absent: distended, tenderness, guarding, rebound, rigid, pulsatile mass - Rectal Rectal exam: Present: deferred - Extremities Exam Extremities exam: Present: normal inspection, full ROM, pedal edema (2+ edema in the bilateral lower extremities), other (2+ pulses noted in the bilateral upper and lower extremities. There is no palpable cord. negative Homans sign. Muscular compartments are soft. The pelvis is stable.). Absent: calf tenderness - Back Exam Back exam: Present: normal inspection, full ROM. Absent: tenderness, CVA te nderness (R), CVA tenderness (L), paraspinal tenderness, vertebral tenderness - Neurological Exam Neurological exam: Present: alert, oriented X3, normal gait, other (No facial droop. Tongue midline. Extraocular movements intact bilaterally. Facial sensation intact to light touch in V1, V2, V3 distribution bilaterally. 5 and a 5 strength in 4 extremities. Sensation intact to light touch in 4 extremities.). Absent: motor sensory deficit - Psychiatric Psychiatric exam: Present: normal affect, normal mood - Skin Skin exam: Present: warm, dry, intact, normal color. Absent: rash ED Course Vital Signs 05/25/21 19:33 Temperature 98.3 F Pulse Rate 82 Respiratory 16 Rate Blood Pressure 128/68 O2 Sat by Pulse 99 Oximetry - Reevaluation(s) Reevaluation #1: 05/25/21 20:52 Differential diagnosis, including but not limited to: GERD, gastritis, hiatal hernia, pneumonia, costochondritis, acute coronary syndrome, pulmonary embolism Assessment and plan: 76-year-old gentleman, with history of colon cancer, previously in remission, who is not currently tachycardic, tachypneic or hypoxic, who denies DVT and pulmonary embolism risk factors, who is otherwise low risk by Wells criteria for pulmonary embolism, moderate to high risk for major adverse cardiac event as per heart score, presenting with chest pain relieved with nitroglycerin. He is chest pain-free at this time. Place patient on test deskman. Obtain EKG, chest x-ray, appropriate laboratory studies, and treat his symptoms. Discussed with cardiology on-call. Anticipate admission for cardiac evaluation/restratification. Discussed this with the patient. He articulated understanding 05/25/21 21:57 Dr Petty Newman to admit to [facility] D-dimer elevated. CT scan chest pending. Troponin negative. Laboratory studies otherwise unremarkable. Patient resting comfortably in stretcher. Awaiting callback from his cardiology group. - Consultations Consultation #1: 05/25/21 22:00 Discussed the patient's history, physical, laboratory studies imaging studies and clinical impression with cardiology on-call, Dr Agee Cardiology group is in agreement with the plan of care, they will follow in consultation, recommend n.p.o. after midnight, and are in agreement with Lexiscan stress test. Hospital physician is updated. 05/25/21 22:09 ION score - Ion Score Age > 65: (1) Yes Aspirin use within the Past 7 Days: (1) Yes 3 or more CAD Risk Factors: (1) Yes 2 or more Angina events in past 24 hrs: (1) Yes Known CAD with more than 50% Stenosis: (0) No Elevated Cardiac Markers: (0) No ST Deviation Greater than 0.5mm: (0) No ION Score: 4 ED Medical Decision Making - Lab Data Result diagrams: 05/25/21 20:33 05/25/21 20:33 Vital Signs 05/25/21 19:33 Temperature 98.3 F Pulse Rate 82 Respiratory 16 Rate Blood Pressure 128/68 O2 Sat by Pulse 99 Oximetry Lab Results 05/25/21 05/25/21 05/25/21 Range/Units 20:33 20:33 20:33 WBC 7.5 (4.5-11.0) K/mm3 RBC 3.75 (3.65-5.03) M/mm3 Hgb 12.5 (11.8-15.2) gm/dl Hct 39.0 (35.5-45.6) % MCV 104 H (84-94) fl MCH 33 H (28-32) pg MCHC 32 (32-34) % RDW 12.9 L (13.2-15.2) % Plt Count 169 (140-440) K/mm3 Lymph % (Auto) 9.3 L (13.4-35.0) % Moffat % (Auto) 6.3 (0.0-7.3) % Eos % (Auto) 0.0 (0.0-4.3) % Baso % (Auto) 0.5 (0.0-1.8) % Lymph # (Auto) 0.7 L (1.2-5.4) K/mm3 Moffat # (Auto) 0.5 (0.0-0.8) K/mm3 Eos # (Auto) 0.0 (0.0-0.4) K/mm3 Baso # (Auto) 0.0 (0.0-0.1) K/mm3 Seg Neutrophils % 83.9 H (40.0-70.0) % Seg Neutrophils # 6.3 (1.8-7.7) K/mm3 PT 14.4 (12.2-14.9) Sec. INR 1.01 (0.87-1.13) D-Dimer 400.49 H (0-234) ng/mlDDU Sodium 139 (137-145) mmol/L Potassium 3.8 (3.6-5.0) mmol/L Chloride 103.2 (98-107) mmol/L Carbon Dioxide 22 (22-30) mmol/L Anion Gap 18 mmol/L BUN 22 H (9-20) mg/dL Creatinine 1.3 (0.8-1.3) mg/dL Estimated GFR > 60 ml/min BUN/Creatinine Ratio 17 % Glucose 228 H (75-100) mg/dL Calcium 9.7 (8.4-10.2) mg/dL Total Bilirubin 0.30 (0.1-1.2) mg/dL AST 22 (5-40) units/L ALT 31 (7-56) units/L Alkaline Phosphatase 139 H (35-129) units/L Troponin T < 0.010 (0.00-0.029) ng/mL NT-Pro-B Natriuret Pep (0-900) pg/mL Total Protein 7.5 (6.3-8.2) g/dL Albumin 4.2 (3.9-5) g/dL Albumin/Globulin Ratio 1.3 % 05/25/21 Range/Units 20:33 WBC (4.5-11.0) K/mm3 RBC (3.65-5.03) M/mm3 Hgb (11.8-15.2) gm/dl Hct (35.5-45.6) % MCV (84-94) fl MCH (28-32) pg MCHC (32-34) % RDW (13.2-15.2) % Plt Count (140-440) K/mm3 Lymph % (Auto) (13.4-35.0) % Moffat % (Auto) (0.0-7.3) % Eos % (Auto) (0.0-4.3) % Baso % (Auto) (0.0-1.8) % Lymph # (Auto) (1.2-5.4) K/mm3 Moffat # (Auto) (0.0-0.8) K/mm3 Eos # (Auto) (0.0-0.4) K/mm3 Baso # (Auto) (0.0-0.1) K/mm3 Seg Neutrophils % (40.0-70.0) % Seg Neutrophils # (1.8-7.7) K/mm3 PT (12.2-14.9) Sec. INR (0.87-1.13) D-Dimer (0-234) ng/mlDDU Sodium (137-145) mmol/L Potassium (3.6-5.0) mmol/L Chloride (98-107) mmol/L Carbon Dioxide (22-30) mmol/L Anion Gap mmol/L BUN (9-20) mg/dL Creatinine (0.8-1.3) mg/dL Estimated GFR ml/min BUN/Creatinine Ratio % Glucose (75-100) mg/dL Calcium (8.4-10.2) mg/dL Total Bilirubin (0.1-1.2) mg/dL AST (5-40) units/L ALT (7-56) units/L Alkaline Phosphatase (35-129) units/L Troponin T (0.00-0.029) ng/mL NT-Pro-B Natriuret Pep 152.4 (0-900) pg/mL Total Protein (6.3-8.2) g/dL Albumin (3.9-5) g/dL Albumin/Globulin Ratio % - EKG Data -: EKG Interpreted by Mt EKG shows normal: sinus rhythm Rate: normal - EKG Data 05/25/21 20:52 The EKG is interpreted at 19: 43 Sinus rhythm, rate 85 bpm. Normal axis, normal P wave axis, nonspecific T wave abnormalities, QTC 4 4 7 ms. This is an abnormal EKG. This is not a STEMI. Do not have prior available for comparison. - Radiology Data Radiology results: pending, report reviewed, image reviewed CHEST 2 VIEWS INDICATION / CLINICAL INFORMATION: chestpain. COMPARISON: 02/22/2020 FINDINGS: SUPPORT DEVICES: None. HEART / MEDIASTINUM: No significant abnormality. LUNGS / PLEURA: No significant pulmonary or pleural abnormality. No pneumothorax. ADDITIONAL FINDINGS: No significant additional findings. IMPRESSION: 1. No acute findings. Signer Name: Johan Franks MD Signed: 05/25/2021 8:22 PM Workstation Name: [id number] Critical care attestation.: If time is entered above; I have spent that time in minutes in the direct care of this critically ill patient, excluding procedure time. ED Disposition Clinical Impression: Acute chest pain Disposition: 09 ADMITTED INPATIENT Is pt being admited?: Yes Does the pt Need Aspirin: Yes Condition: Stable Instructions: Chest Pain (ED)
[2021-05-25 21:02] LABS: Basophils % (Auto) 0.5 % (0.0-1.8); Hemoglobin 12.5 gm/dl (11.8-15.2); Lymphocytes # (Auto) 0.7 K/mm3 (1.2-5.4); Lymphocytes % (Auto) 9.3 % (13.4-35.0); Mean Corpuscular HGB Conc 32 % (32-34); Mean Corpuscular Volume 104 fl (84-94); Monocytes # (Auto) 0.5 K/mm3 (0.0-0.8); Monocytes % (Auto) 6.3 % (0.0-7.3); Platelet Count 169 K/mm3 (140-440); Red Blood Count 3.75 M/mm3 (3.65-5.03); Red Cell Distribution Width 12.9 % (13.2-15.2)
[2021-05-25 21:10] LABS: INR 1.01 (0.87-1.13)
--- NOTE | 2021-05-25 21:26 | XRay Report ---
CHEST 2 VIEWS INDICATION / CLINICAL INFORMATION: chestpain. COMPARISON: 02/22/2020 FINDINGS: SUPPORT DEVICES: None. HEART / MEDIASTINUM: No significant abnormality. LUNGS / PLEURA: No significant pulmonary or pleural abnormality. No pneumothorax. ADDITIONAL FINDINGS: No significant additional findings. IMPRESSION: 1. No acute findings. Signer Name: Johan Franks MD Signed: 05/25/2021 9:22 PM Workstation Name: [id number]
[2021-05-25 21:34] LABS: Alanine Aminotransferase 31 units/L (7-56); Albumin 4.2 g/dL (3.9-5); BUN/Creatinine Ratio 17; Blood Urea Nitrogen 22 mg/dL (9-20); Calcium 9.7 mg/dL (8.4-10.2); Hemolysis Index 5
[2021-05-25] MEDS ORDERED: traMADol 50 MG TAB PO PRN (22:03)
[2021-05-25] MEDS ORDERED: ONDANSETRON 4 MG/2 ML INJ IV PRN (22:03)
[2021-05-25] MEDS ORDERED: DEXTROSE 50% IN WATER (25GM) 50 ML SYRINGE IV PRN (22:03)
[2021-05-25] MEDS ORDERED: ACETAMINOPHEN 325 MG TAB PO PRN ×2 (22:03)
[2021-05-25] MEDS ORDERED: MAGNESIUM HYDROXIDE (MOM) ORAL LIQD UDC PO PRN (22:12)
[2021-05-25] MEDS ORDERED: MORPHINE 4 MG/1 ML INJ IV PRN (22:12)
[2021-05-25] MEDS ORDERED: NITROGLYCERIN 0.4 MG TAB SUBL SL PRN (22:12)
[2021-05-25] MEDS ORDERED: MORPHINE 2 MG/1 ML INJ IV PRN ×2 (22:12)
--- NOTE | 2021-05-25 22:25 | History and Physical Report ---
History of Present Illness Date of examination: 05/25/21 Date of admission: 05/25/2021 Chief complaint: Chest Pain History of present illness: 76-year-old -[place] male with known history of coronary artery disease status post CABG in 2010, history of colon cancer status post a resection in 2017 presents to the emergency room today complaining of substernal chest pain. Chest pain has been intermittent over the past 24 hours. Pain is worse upon exertion and improves upon resting. He has been compliant with his medications including aspirin. He denies any shortness of breath, no nausea vomiting and no abdominal pain. Patient denies any fever or chills, no headache or dizziness and no diaphoresis. Patient denies any sick contacts and no recent travel. Denies any contact with anyone with COVID-19. He has been fully vaccinated against COVID-19. Patient does not recall having a cardiac cath or stress test lately. Work-up in the emergency room today, chest x-ray, troponin, EKG has been negative. Patient follows up with [facility] cardiology group. Past History Past Medical History: diabetes, hypertension, migraines, other (H/O Colon Ca.,Kidney Stones) Past Surgical History: CABG (In 2011), Other (Colon surgery) Social history: no significant social history Family history: no significant family history Medications and Allergies Allergies Allergy/AdvReac Type Severity Reaction Status Date / Time No Known Allergies Allergy Verified 10/06/18 09:34 Home Medications Medication Instructions Recorded Confirmed Last Taken Type Aspirin 325 mg PO QDAY 08/02/17 02/22/20 3 Weeks Ago History ~10/17/18 Metoprolol [Lopressor TAB] 25 mg PO DAILY 08/02/17 02/22/20 11/07/18 07:00 History AtorvaSTATin [Lipitor] 40 mg PO QHS 10/06/18 02/22/20 11/05/18 History Latanoprost 0.005% 1 drop OP QPM 10/06/18 02/22/20 11/06/18 History Olmesartan/Hydrochlorothiazide 1 each PO DAILY 10/06/18 02/22/20 11/05/18 History [Olmesartan-Hctz 20-12.5 mg Tab] Acetaminophen [Acetaminophen TAB] 650 mg PO Q6H PRN tablet 02/22/20 Unknown Rx Aspirin 325 mg PO QDAY tablet 02/22/20 Unknown Rx Docusate Sodium [Colace CAP] 100 mg PO BID capsule 02/22/20 Unknown Rx ISOSORBIDE MONOnitrate [Imdur ER] 30 mg PO QDAY #30 tablet 02/22/20 Unknown Rx Nitroglycerin [Nitrostat] 0.4 mg SL Q5M PRN 02/22/20 02/22/20 Unknown History Active Meds: Active Medications Acetaminophen (Acetaminophen 325 Mg Tab) 650 mg PO Q4H PRN PRN Reason: Pain MILD(1-3)/Fever >100.5/RUSSO Acetaminophen (Acetaminophen 325 Mg Tab) 650 mg PO Q6H PRN PRN Reason: Pain, Mild (1-3) Aspirin (Aspirin Ec 325 Mg Tab) 325 mg PO QDAY MATI Dextrose (Dextrose 50% In Water (25gm) 50 Ml Syringe) 50 ml IV Q30MIN PRN; Protocol PRN Reason: Hypoglycemia Heparin Sodium (Porcine) (Heparin 5,000 Unit/1 Ml Vial) 5,000 unit SUB-Q Q8HR MATI Insulin Human Lispro (Insulin Lispro 100 Unit/Ml) 0 unit SUB-Q ACHS MATI; Protocol Magnesium Hydroxide (Magnesium Hydroxide (Mom) Oral Liqd Udc) 30 ml PO Q4H PRN PRN Reason: Constipation Morphine Sulfate (Morphine 2 Mg/1 Ml Inj) 2 mg IV Q4H PRN PRN Reason: Pain, Moderate (4-6) Morphine Sulfate (Morphine 4 Mg/1 Ml Inj) 4 mg IV Q4H PRN PRN Reason: Pain , Severe (7-10) Morphine Sulfate (Morphine 4 Mg/1 Ml Inj) 2 mg IV Q5MIN PRN PRN Reason: Chest Pain unrelieved by NTG Nitroglycerin (Nitroglycerin 0.4 Mg Tab Subl) 0.4 mg SL .Q5MIN PRN PRN Reason: Chest Pain Nitroglycerin (Nitroglycerin 0.4 Mg Tab Subl) 0.4 mg SL Q5M PRN PRN Reason: Chest Pain Ondansetron HCl (Ondansetron 4 Mg/2 Ml Inj) 4 mg IV Q8H PRN PRN Reason: Nausea And Vomiting Sodium Chloride (Sodium Chloride 0.9% 10 Ml Flush Syringe) 10 ml IV BID MATI Sodium Chloride (Sodium Chloride 0.9% 10 Ml Flush Syringe) 10 ml IV PRN PRN PRN Reason: LINE FLUSH Sodium Chloride (Sodium Chloride 0.9% 10 Ml Flush Syringe) 10 ml IV PRN PRN PRN Reason: LINE FLUSH Tramadol HCl (Tramadol 50 Mg Tab) 50 mg PO Q6H PRN PRN Reason: Pain, Moderate (4-6) Review of Systems Constitutional: no fever, no chills Ears, nose, mouth and throat: no nasal congestion, no sore throat Cardiovascular: chest pain, no palpitations Respiratory: shortness of breath (On Exertion), no cough Gastrointestinal: no abdominal pain, no nausea, no vomiting, no diarrhea Genitourinary Male: no dysuria, no hematuria, no flank pain, no nocturia Musculoskeletal: no neck pain, no low back pain Integumentary: no rash, no pruritis Neurological: no headaches, no confusion Psychiatric: no anxiety, no depression Endocrine: no polyphagia, no polydipsia, no polyuria, no nocturia Exam - Constitutional Vitals: Temp Pulse Resp BP Pulse Ox 98.3 F 82 16 128/68 99 05/25/21 19:33 05/25/21 19:33 05/25/21 19:33 05/25/21 19:33 05/25/21 19:33 General appearance: Present: no acute distress, well-nourished - EENT Eyes: Present: PERRL, EOM intact. Absent: scleral icterus ENT: hearing intact, clear oral mucosa, dentition normal - Neck Neck: Present: supple, normal ROM - Respiratory Respiratory effort: normal Respiratory: bilateral: CTA - Cardiovascular Rhythm: regular Heart Sounds: Present: S1 & S2. Absent: gallop, systolic murmur, diastolic murmur, rub - Extremities Extremities: no ischemia, pulses intact, pulses symmetrical, normal temperature, normal color, Full ROM Extremity abnormal: edema (Trace left ankle edema) Peripheral Pulses: within normal limits - Abdominal General gastrointestinal: Present: soft, non-tender, non-distended, normal bowel sounds. Absent: mass - Integumentary Integumentary: Present: clear, warm, dry, normal turgor. Absent: rash - Musculoskeletal Musculoskeletal: strength equal bilaterally - Psychiatric Psychiatric: appropriate mood/affect, intact judgment & insight, memory intact, cooperative - Neurologic Neurologic: CNII-XII intact, no focal deficits, moves all extremities HEART Score - HEART Score History: Moderately suspicious EKG: Non-specific Age: > 65 Risk factors: > 3 risk factors or hx of atherosclerotic disease Troponin: Troponin T < 0.010 ng/mL (0.00-0.029) 05/25/21 20:33 Troponin: < normal limit HEART Score: 6 - Critical Actions Critical Actions: 4-6 pts:12-16.6% risk of adverse cardiac event. Should be a dmitted Results - Labs CBC & Chem 7: 05/26/21 04:50 05/26/21 04:50 Labs: Abnormal lab results 05/25/21 05/25/21 05/25/21 Range/Units 20:33 20:33 20:33 MCV 104 H (84-94) fl MCH 33 H (28-32) pg RDW 12.9 L (13.2-15.2) % Lymph % (Auto) 9.3 L (13.4-35.0) % Lymph # (Auto) 0.7 L (1.2-5.4) K/mm3 Seg Neutrophils % 83.9 H (40.0-70.0) % D-Dimer 400.49 H (0-234) ng/mlDDU BUN 22 H (9-20) mg/dL Glucose 228 H (75-100) mg/dL Alkaline Phosphatase 139 H (35-129) units/L Assessment and Plan - Patient Problems (1) Acute chest pain Current Visit: No Status: Acute Plan to address problem: Patient admitted and placed on telemetry. We will check serial cardiac enzymes. Patient continued on aspirin sublingual nitroglycerin and IV morphine as needed for chest pain. We await further evaluation and recommendations from cardiology. (2) CAD (coronary artery disease) Current Visit: No Status: Chronic Plan to address problem: Patient has history of CABG in 2011 in [facility]. He has been compliant with his medications. (3) Diabetes mellitus Current Visit: No Status: Chronic Plan to address problem: Patient placed on sliding scale insulin. Will monitor Accu-Cheks. (4) HTN (hypertension) Current Visit: No Status: Chronic Qualifiers: Hypertension type: essential hypertension Plan to address problem: We will resume routine home medications and monitor vital signs closely. (5) History of colon cancer Current Visit: No Status: Chronic Plan to address problem: Patient is status post colon resection 2016. (6) Hyperlipidemia Current Visit: No Status: Chronic Plan to address problem: We will resume routine home medications and monitor lipid profile. (7) DVT prophylaxis Current Visit: No Status: Acute Plan to address problem: Patient placed on SQ heparin (8) Full code status Current Visit: No Status: Acute Plan to address problem: Patient is Full Code.
[2021-05-26 01:28] LABS: Chol/HDL Ratio 2.54 %
--- NOTE | 2021-05-26 01:49 | Cat Scan Report ---
CTA CHEST WITH CONTRAST INDICATION / CLINICAL INFORMATION: Acute chest pain, Hx of Colon cancer. TECHNIQUE: Axial CT images were obtained through the chest after injection of IV contrast. 3 plane PA P and/or 3D reconstructions were produced. All CT scans at this location are performed using CT dose reduction for ALARA by means of automated exposure control. COMPARISON: None available. FINDINGS: The pulmonary arteries are patent without filling defect or evidence for PTE. Heart and aorta appear normal. Coronary artery disease is identified. Some mild interstitial prominence within the lungs cou ld represent mild edema. No focal consolidation is seen. Calcified granuloma in the left lower lung. No dominant adenopathy is identified ADDITIONAL FINDINGS: None. UPPER ABDOMEN: No acute findings. SKELETAL STRUCTURES: No significant osseous abnormality. IMPRESSION: 1. No CT evidence for pulmonary embolism. 2. Mild interstitial prominence within the lungs could represent trace edema. Signer Name: Arturo Cash MD Signed: 05/26/2021 1:45 AM Workstation Name: [id number]
[2021-05-26 05:12] LABS: Basophils % (Auto) 0.3 % (0.0-1.8); Eosinophils % (Auto) 0.1 % (0.0-4.3); Hematocrit 36.6 % (35.5-45.6); Hemoglobin 11.9 gm/dl (11.8-15.2); Lymphocytes # (Auto) 0.8 K/mm3 (1.2-5.4); Lymphocytes % (Auto) 12.9 % (13.4-35.0); Mean Corpuscular HGB Conc 33 % (32-34); Mean Corpuscular Volume 103 fl (84-94); Monocytes # (Auto) 0.4 K/mm3 (0.0-0.8); Monocytes % (Auto) 6.9 % (0.0-7.3); Platelet Count 171 K/mm3 (140-440); Red Blood Count 3.54 M/mm3 (3.65-5.03)
[2021-05-26 05:24] LABS: BUN/Creatinine Ratio 19; Blood Urea Nitrogen 23 mg/dL (9-20); Calcium 9.6 mg/dL (8.4-10.2); Hemolysis Index 3
[2021-05-26] MEDS ORDERED: HEPARIN 5,000 UNIT/1 ML VIAL SUB-Q SCH (06:00)
[2021-05-26] MEDS: INSULIN LISPRO 100 UNIT/ML SUB-Q SCH ×3 (08:22→22:00)
[2021-05-26] MEDS ORDERED: REGADENOSON 0.4 MG/5 ML INJ IV ONE (08:30)
--- NOTE | 2021-05-26 09:50 | Progress Note ---
Assessment and Plan Assessment and plan: Chest pain. Coronary artery disease Diabetes mellitus type 2 Hypertension History of colon cancer. Patient is s/p colon resection 2017 Hyperlipidemia 05/26/2021. CTA revealed trace edema but no evidence of PE. Check BNP. Follow- up echocardiogram to rule out heart failure. Await cardiology consultation. Continue telemetry monitoring. Follow-up cardiac isoenzymes. Patient has a history of CABG in 2011 [place], [place]. Continue Accu-Cheks and sliding scale insulin. Resume antihypertensive medications. History Interval history: No new issues overnight. Hospitalist Physical - Constitutional Vitals: Temp Pulse Resp BP Pulse Ox 97.6 F 66 18 126/67 99 05/26/21 06:17 05/26/21 06:17 05/26/21 06:17 05/26/21 06:17 05/26/21 06:17 General appearance: Present: no acute distress, well-nourished - EENT Eyes: Present: PERRL, EOM intact ENT: hearing intact, clear oral mucosa, dentition normal - Neck Neck: Present: supple, normal ROM - Respiratory Respiratory effort: normal Respiratory: bilateral: CTA - Cardiovascular Rhythm: regular Heart Sounds: Present: S1 & S2. Absent: gallop, rub - Extremities Extremities: no ischemia, No edema, Full ROM - Abdominal General gastrointestinal: soft, non-tender, non-distended, normal bowel sounds - Integumentary Integumentary: Present: clear, warm, dry - Neurologic Neurologic: CNII-XII intact, moves all extremities HEART Score - HEART Score EKG: Non-specific Age: > 65 Risk factors: > 3 risk factors or hx of atherosclerotic disease Troponin: Troponin T 0.024 ng/mL (0.00-0.029) 05/26/21 04:50 Troponin: < normal limit - Critical Actions Critical Actions: 4-6 pts:12-16.6% risk of adverse cardiac event. Should be admitted Results - Labs CBC & Chem 7: 05/26/21 04:50 05/26/21 04:50 Labs: Laboratory Last Values WBC 6.4 K/mm3 (4.5-11.0) 05/26/21 04:50 RBC 3.54 M/mm3 (3.65-5.03) L 05/26/21 04:50 Hgb 11.9 gm/dl (11.8-15.2) 05/26/21 04:50 Hct 36.6 % (35.5-45.6) 05/26/21 04:50 MCV 103 fl (84-94) H 05/26/21 04:50 MCH 34 pg (28-32) H 05/26/21 04:50 MCHC 33 % (32-34) 05/26/21 04:50 RDW 13.0 % (13.2-15.2) L 05/26/21 04:50 Plt Count 171 K/mm3 (140-440) 05/26/21 04:50 Lymph % (Auto) 12.9 % (13.4-35.0) L 05/26/21 04:50 [place] % (Auto) 6.9 % (0.0-7.3) 05/26/21 04:50 Eos % (Auto) 0.1 % (0.0-4.3) 05/26/21 04:50 Baso % (Auto) 0.3 % (0.0-1.8) 05/26/21 04:50 Lymph # (Auto) 0.8 K/mm3 (1.2-5.4) L 05/26/21 04:50 [place] # (Auto) 0.4 K/mm3 (0.0-0.8) 05/26/21 04:50 Eos # (Auto) 0.0 K/mm3 (0.0-0.4) 05/26/21 04:50 Baso # (Auto) 0.0 K/mm3 (0.0-0.1) 05/26/21 04:50 Seg Neutrophils % 79.8 % (40.0-70.0) H 05/26/21 04:50 Seg Neutrophils # 5.1 K/mm3 (1.8-7.7) 05/26/21 04:50 PT 14.4 Sec. (12.2-14.9) 05/25/21 20:33 INR 1.01 (0.87-1.13) 05/25/21 20:33 D-Dimer 400.49 ng/mlDDU (0-234) H 05/25/21 20:33 Sodium 144 mmol/L (137-145) 05/26/21 04:50 Potassium 4.5 mmol/L (3.6-5.0) 05/26/21 04:50 Chloride 105.9 mmol/L (98-107) 05/26/21 04:50 Carbon Dioxide 24 mmol/L (22-30) 05/26/21 04:50 Anion Gap 19 mmol/L 05/26/21 04:50 BUN 23 mg/dL (9-20) H 05/26/21 04:50 Creatinine 1.2 mg/dL (0.8-1.3) 05/26/21 04:50 Estimated GFR > 60 ml/min 05/26/21 04:50 BUN/Creatinine Ratio 19 % 05/26/21 04:50 Glucose 150 mg/dL (75-100) H 05/26/21 04:50 POC Glucose 112 mg/dL (70-105) H 05/26/21 08:21 Calcium 9.6 mg/dL (8.4-10.2) 05/26/21 04:50 Total Bilirubin 0.30 mg/dL (0.1-1.2) 05/25/21 20:33 AST 22 units/L (5-40) 05/25/21 20:33 ALT 31 units/L (7-56) 05/25/21 20:33 Alkaline Phosphatase 139 units/L (35-129) H 05/25/21 20:33 Troponin T 0.024 ng/mL (0.00-0.029) 05/26/21 04:50 NT-Pro-B Natriuret Pep 152.4 pg/mL (0-900) 05/25/21 20:33 Total Protein 7.5 g/dL (6.3-8.2) 05/25/21 20:33 Albumin 4.2 g/dL (3.9-5) 05/25/21 20:33 Albumin/Globulin Ratio 1.3 % 05/25/21 20:33 Triglycerides 40 mg/dL (2-149) 05/25/21 23:03 Cholesterol 122 mg/dL (50-199) 05/25/21 23:03 LDL Cholesterol Direct 70 mg/dL (50-130) 05/25/21 23:03 HDL Cholesterol 48 mg/dL (40-59) 05/25/21 23:03 Cholesterol/HDL Ratio 2.54 % 05/25/21 23:03 Active Medications - Current Medications Current Medications: Generic Name Dose Route Start Last Admin Trade Name Yumiko PRN Reason Stop Dose Admin Acetaminophen 650 mg 05/25/21 22:03 Acetaminophen 325 Mg Tab PO Q4H PRN Pain MILD(1-3)/Fever >100.5/RUSSO Aspirin 325 mg 05/26/21 10:00 Aspirin Ec 325 Mg Tab PO QDAY MATI Dextrose 0 ml 05/25/21 22:03 Dextrose 50% In Water (25gm) 50 Ml Syringe IV Q30MIN PRN Hypoglycemia Protocol Heparin Sodium (Porcine) 5,000 unit 05/26/21 06:00 05/26/21 06:31 Heparin 5,000 Unit/1 Ml Vial SUB-Q 5,000 unit Q8HR [facility] Administration Insulin Human Lispro 0 unit 05/26/21 07:30 05/26/21 08:22 Insulin Lispro 100 Unit/Ml SUB-Q Not Given ACHS [facility] Protocol Magnesium Hydroxide 30 ml 05/25/21 22:12 Magnesium Hydroxide (Mom) Oral Liqd Udc PO Q4H PRN Constipation Morphine Sulfate 2 mg 05/25/21 22:12 Morphine 2 Mg/1 Ml Inj IV Q4H PRN Pain, Moderate (4-6) Morphine Sulfate 4 mg 05/25/21 22:12 Morphine 4 Mg/1 Ml Inj IV Q4H PRN Pain , Severe (7-10) Morphine Sulfate 2 mg 05/25/21 22:12 Morphine 2 Mg/1 Ml Inj IV Q5MIN PRN Chest Pain unrelieved by NTG Nitroglycerin 0.4 mg 05/25/21 20:27 Nitroglycerin 0.4 Mg Tab Subl SL .Q5MIN PRN Chest Pain Ondansetron HCl 4 mg 05/25/21 22:03 Ondansetron 4 Mg/2 Ml Inj IV Q8H PRN Nausea And Vomiting Sodium Chloride 10 ml 05/26/21 10:00 Sodium Chloride 0.9% 10 Ml Flush Syringe IV BID MATI Sodium Chloride 10 ml 05/25/21 22:03 Sodium Chloride 0.9% 10 Ml Flush Syringe IV PRN PRN LINE FLUSH Tramadol HCl 50 mg 05/25/21 22:03 Tramadol 50 Mg Tab PO Q6H PRN Pain, Moderate (4-6)
[2021-05-26] MEDS ORDERED: ASPIRIN EC 325 MG TAB PO SCH (10:00)
[2021-05-26] MEDS: NITROGLYCERIN 0.4 MG TAB SUBL SL PRN ×3 (10:36→11:29)
[2021-05-26] MEDS ORDERED: SODIUM CHLORIDE 0.9% 500 ML 500 ML IV SCH (11:00)
--- NOTE | 2021-05-26 11:07 | Consultation ---
History of Present Illness Consult date: 05/26/21 Requesting physician: MANISHA CELESTE Consult reason: chest pain, elevated troponin History of present illness: 76-year-old male with bypass in 2010 has hypertension hyperlipidemia was watching football games had chest pain. Took a nitroglycerin partial relief. Had to take 3 sublingual nitro glycerin and ambulance was called. Was chest pain-free free or getting better by time he came. With some mild nausea. Mi dsternal chest pressure no radiation. Patient states was doing relatively fine few weeks ago. Had a negative stress test in 2017. No fever no chills had borderline abnormal troponins here for Lexiscan had chest pain EKG changes during Lexiscan. As per the patient's been having symptoms for several months but has been declining medical treatment Past History Past Medical History: CAD (2010 EGAN to LAD SVG to PDA SVG to diagonal SVG to OM1 and OM 2), diabetes, hypertension, migraines, other (H/O Colon Ca.,Kidney Stones) Past Surgical History: CABG (In 2011), Other (Colon surgery) Social history: no significant social history Family history: no significant family history Medications and Allergies Allergies Allergy/AdvReac Type Severity Reaction Status Date / Time No Known Allergies Allergy Verified 05/26/21 09:46 Home Medications Medication Instructions Recorded Confirmed Last Taken Type Aspirin 325 mg PO QDAY 08/02/17 05/26/21 05/25/21 History AtorvaSTATin [Lipitor] 40 mg PO QHS 10/06/18 05/26/21 05/25/21 History Olmesartan/Hydrochlorothiazide 1 each PO DAILY 10/06/18 05/26/21 05/25/21 History [Olmesartan-Hctz 20-12.5 mg Tab] ISOSORBIDE MONOnitrate [Imdur ER] 30 mg PO QDAY #30 tablet 02/22/20 05/26/21 05/25/21 Rx Nitroglycerin [Nitrostat] 0.4 mg SL Q5M PRN 02/22/20 05/26/21 05/25/21 History Metoprolol Xl [Metoprolol 25 mg PO QDAY 05/26/21 05/26/21 05/25/21 History SUCCINATE ER TAB] Active Meds: Active Medications Acetaminophen (Acetaminophen 325 Mg Tab) 650 mg PO Q4H PRN PRN Reason: Pain MILD(1-3)/Fever >100.5/RUSSO Aspirin (Aspirin Ec 325 Mg Tab) 325 mg PO QDAY MATI Dextrose (Dextrose 50% In Water (25gm) 50 Ml Syringe) 0 ml IV Q30MIN PRN; Protocol PRN Reason: Hypoglycemia Heparin Sodium (Porcine) (Heparin 5,000 Unit/1 Ml Vial) 5,000 unit SUB-Q Q8HR MATI Last Admin: 05/26/21 06:31 Dose: 5,000 unit Sodium Chloride (Nacl 0.9% 500 Ml) 500 mls @ 50 mls/hr IV DIRECT MATI Stop: 05/26/21 20:59 Insulin Human Lispro (Insulin Lispro 100 Unit/Ml) 0 unit SUB-Q ACHS MATI; Protocol Last Admin: 05/26/21 08:22 Dose: Not Given Magnesium Hydroxide (Magnesium Hydroxide (Mom) Oral Liqd Udc) 30 ml PO Q4H PRN PRN Reason: Constipation Morphine Sulfate (Morphine 2 Mg/1 Ml Inj) 2 mg IV Q4H PRN PRN Reason: Pain, Moderate (4-6) Morphine Sulfate (Morphine 4 Mg/1 Ml Inj) 4 mg IV Q4H PRN PRN Reason: Pain , Severe (7-10) Morphine Sulfate (Morphine 2 Mg/1 Ml Inj) 2 mg IV Q5MIN PRN PRN Reason: Chest Pain unrelieved by NTG Nitroglycerin (Nitroglycerin 0.4 Mg Tab Subl) 0.4 mg SL .Q5MIN PRN PRN Reason: Chest Pain Last Admin: 05/26/21 10:41 Dose: 0.4 mg Ondansetron HCl (Ondansetron 4 Mg/2 Ml Inj) 4 mg IV Q8H PRN PRN Reason: Nausea And Vomiting Sodium Chloride (Sodium Chloride 0.9% 10 Ml Flush Syringe) 10 ml IV BID MATI Sodium Chloride (Sodium Chloride 0.9% 10 Ml Flush Syringe) 10 ml IV PRN PRN PRN Reason: LINE FLUSH Tramadol HCl (Tramadol 50 Mg Tab) 50 mg PO Q6H PRN PRN Reason: Pain, Moderate (4-6) Review of Systems All systems: negative (As per the HPI) Physical Examination Vital Signs Temp Pulse Resp BP Pulse Ox 98.3 F 82 16 128/68 99 05/25/21 19:33 05/25/21 19:33 05/25/21 19:33 05/25/21 19:33 05/25/21 19:33 General appearance: no acute distress, well-nourished HEENT: Positive: PERRL, Mucus Membranes Moist Neck: Positive: neck supple, trachea midline Cardiac: Positive: Reg Rate and Rhythm, S1/S2. Negative: Audible Murmur Lungs: Positive: clear to auscultation, Normal Breath Sounds Neuro: Positive: Grossly Intact Abdomen: Positive: Soft, Active Bowel Sounds. Negative: Tender, Distended Male genitourinary: Positive: normal Skin: Positive: Clear Incision: Cardiac Cath Site Musculoskeletal: No Pain, Normal Range of Motion Extremities: Present: normal. Absent: edema Results 05/26/21 04:50 05/26/21 04:50 Cardiac Enzymes 05/25/21 Range/Units 20:33 AST 22 (5-40) units/L Coagulation 05/25/21 Range/Units 20:33 PT 14.4 (12.2-14.9) Sec. INR 1.01 (0.87-1.13) Lipids 05/25/21 Range/Units 23:03 Triglycerides 40 (2-149) mg/dL Cholesterol 122 (50-199) mg/dL HDL Cholesterol 48 (40-59) mg/dL Cholesterol/HDL Ratio 2.54 % CBC 05/25/21 05/26/21 Range/Units 20:33 04:50 WBC 7.5 6.4 (4.5-11.0) K/mm3 RBC 3.75 3.54 L (3.65-5.03) M/mm3 Hgb 12.5 11.9 (11.8-15.2) gm/dl Hct 39.0 36.6 (35.5-45.6) % Plt Count 169 171 (140-440) K/mm3 Lymph # (Auto) 0.7 L 0.8 L (1.2-5.4) K/mm3 [place] # (Auto) 0.5 0.4 (0.0-0.8) K/mm3 Eos # (Auto) 0.0 0.0 (0.0-0.4) K/mm3 Baso # (Auto) 0.0 0.0 (0.0-0.1) K/mm3 Comprehensive Metabolic Panel 05/25/21 05/26/21 Range/Units 20:33 04:50 Sodium 139 144 (137-145) mmol/L Potassium 3.8 4.5 (3.6-5.0) mmol/L Chloride 103.2 105.9 (98-107) mmol/L Carbon Dioxide 22 24 (22-30) mmol/L BUN 22 H 23 H (9-20) mg/dL Creatinine 1.3 1.2 (0.8-1.3) mg/dL Glucose 228 H 150 H (75-100) mg/dL Calcium 9.7 9.6 (8.4-10.2) mg/dL AST 22 (5-40) units/L ALT 31 (7-56) units/L Alkaline Phosphatase 139 H (35-129) units/L Total Protein 7.5 (6.3-8.2) g/dL Albumin 4.2 (3.9-5) g/dL EKG interpretations - Telemetry EKG Rhythm: Sinus Rhythm (Sinus rhythm with nonspecific ST-T's) Assessment and Plan 76-year-old male with hypertension diabetes cholesterol coronary arterial disease having acute coronary syndrome with non-ST elevation NV patient will proceed with left heart catheterization. Left main patent LAD proximal 90% mid 100% diagonal 1 proximal 90% circumflex mid 100% RCA proximal 100% normal LV function. SVG to PDA 100% SVG diagonal small caliber graft mid 95% lesion not amenable to intervention EGAN to LAD large-caliber graft patent SVG to OM1 OM 2 large-caliber graft distal 99%. Patient had PCI of the SVG to OM1 OM 2 with 3 drug-eluting stents. Patient patient currently chest pain-free will be on normal saline IV Aggrastat aspirin Plavix statin low-dose beta-seda discussed this in detail with patient's and patient's niece who has nurse practitioner in the [employer] in [place] - Patient Problems (1) NSTEMI (non-ST elevated myocardial infarction) Current Visit: Yes Status: Acute (2) ACS (acute coronary syndrome) Current Visit: No Status: Acute (3) Cancer of sigmoid colon Current Visit: No Status: Chronic (4) CAD (coronary artery disease) Current Visit: No Status: Chronic Qualifiers: Coronary Disease-Associated Artery/Lesion type: bypass graft (5) Diabetes mellitus Current Visit: No Status: Chronic (6) HTN (hypertension) Current Visit: No Status: Chronic Qualifiers: Hypertension type: essential hypertension (7) Hyperlipidemia Current Visit: No Status: Chronic (8) Acute diastolic CHF (congestive heart failure), NYHA class 1 Current Visit: Yes Status: Acute
[2021-05-26] MEDS ORDERED: LIDOCAINE (2%) 20 MG/1 ML VIAL 20 ML MDV INFILTRATI ONE (11:50)
[2021-05-26] MEDS ORDERED: HEPARIN/NS 5000 UNIT/500ML 500 ML IR ONE ×3 (11:50→13:17)
[2021-05-26] MEDS: MIDAZOLAM 2 MG/2 ML INJ ONE ×4 (12:02→13:29)
[2021-05-26] MEDS: fentaNYL 100 MCG/2 ML INJ ONE ×4 (12:05→13:29)
[2021-05-26] MEDS ORDERED: NITROGLYCERIN 0.4 MG TAB SUBL SL ONE (12:27)
[2021-05-26] MEDS: HEPARIN 10,000 UNITS/10 ML VIAL ONE ×3 (12:44→13:26)
[2021-05-26] MEDS ORDERED: SODIUM CHLORIDE 0.9% 1000 ML 1,000 ML ONE (12:49)
[2021-05-26] MEDS ORDERED: NITROGLYCERIN SYRINGE 3 ML ONE ×2 (12:52→13:04)
[2021-05-26] MEDS ORDERED: CLOPIDOGREL 300 MG TAB ONE (12:55)
[2021-05-26] MEDS ORDERED: ALUM-MAG HYDROXIDE-SIMETHICONE 200-200-20MG/5ML ORAL LIQD 30 ML ONE (13:05)
[2021-05-26] MEDS ORDERED: TIROFIBAN/NS 12,500 MCG/250 ML BAG IV ONE (13:10)
[2021-05-26] MEDS ORDERED: traMADol 50 MG TAB PO PRN (13:52)
[2021-05-26] MEDS ORDERED: HYDROcodone/ACETAMINOPHEN 5-325 MG TAB PO PRN (13:52)
[2021-05-26] MEDS ORDERED: SODIUM CHLORIDE 0.9% 1000 ML 1,000 ML IV SCH (14:00)
[2021-05-26] MEDS ORDERED: TIROFIBAN/NS 12,500 MCG/250 ML BAG IV SCH (14:00)
--- NOTE | 2021-05-26 15:34 | Cardiac Catherization Report ---
DATE OF SERVICE: 05/26/2021 LEFT HEART CATHETERIZATION/VEIN GRAFT, EGAN ANGIOGRAPHY, PERCUTANEOUS CORONARY INTERVENTION GRAFT OF AN SVG AND INTRAVASCULAR ULTRASOUND REPORT CLINICAL INFORMATION: This is a 76-year-old male with hypertension, hyperlipidemia, known coronary artery disease with bypass in 2010 as per the niece. Graft report shows EGAN to LAD, SVG to a jump graft to OM1, OM2, SVG to diagonal, SVG to PDA. The patient presents with [id number] myocardial infarction, here for left heart catheterization, having recurrent chest pain despite medical therapy. DESCRIPTION OF PROCEDURE: Procedure was done via the right common femoral artery, sterile technique and local anesthesia. A 6-Mongolian groin sheath inserted. Left system engaged with a JL5 catheter. Left main is a large caliber vessel, is patent. LAD is medium caliber vessel, proximal 90%. Diagonal 1 is small caliber, proximal 90% and the mid 100%. Circumflex is small to medium caliber vessel, proximal patent, mid 100%. RCA proximal 100% with left to left collaterals and right to right collaterals noted, feeding RCA. SVG to PDA engaged with an AR mod catheter, is 100%. SVG to diagonal engaged with an AR catheter, has a small caliber graft of less than 2 mm. Stenosis 95% to mid-portion going to a small diagonal 1 less than 1.5 mm. EGAN to LAD engaged with an IM catheter ,is a large caliber graft, free of disease from the ostium, body anastomosis site feeding into the mid-LAD with good retrograde and antegrade flow. Distal at the apex is 60-70% lesion noted. SVG to OM and OM2 engaged with JR4 catheter, is a large caliber graft, distal has a 99% lesion going into a medium caliber OM1, OM2. Percutaneous coronary intervention with intravascular ultrasound of SVG graft to OM1 and OM2, engaged with JR4 guiding catheter, crossed into the distal OM2 with a Runthrough wire, could not use a distal filter device because we used it in the [place] vessel. Balloon with 2.5 x 12 balloon. Intravascular ultrasound showed distal reference vessel in the [place] vessel was 3.0 and proximal in the graft was 4.2, so stented from the graft into OM2 across the OM1 with a drug-eluting Resolute 3.0 x 26 mm inflated at 15 atmospheres. Postdilated the proximal portion of the graft of the stent with a 4.0 x 12 noncompliant balloon at 16 atmospheres x2 inflations. Good angiographic result distally, but we noticed thrombus and possible dissection proximally and in the mid-portion a focal lesion. Repeat intravascular ultrasound showed thrombus or dissection of the proximal portion of the graft and midportion had a focal lesion. So exchanged out the Runthrough wire for an EV3 SpiderFX filter device noted. The patient had then stented the mid-portion of the graft with a direct stent with a drug-eluting Resolute 3.5 x 15 at 12 atmospheres and stented the proximal portion of the graft with a drug-eluting Resolute 3.5 x 18 mm at 12 atmospheres. Excellent angiographic result. No dissection or perforation noted. The removed distal protection device retrieved. Multiple angiograms, ION 3 flow, no dissection, reduced stenosis to 0%. No embolization noted. Chest pain free. A 6-Mongolian guiding catheter taken over a guidewire. A 6-Mongolian groin sheath was sewn in. No hematoma, no bleeding. SUMMARY: 1. Successful PCI of the SVG to OM1, OM2 with the proximal portion of the graft with 3.5 x 18, mid-portion of graft with 3.5 x 15 Resolute noncompliant and distal portion of the graft going to OM2 with drug-eluting Resolute 3.0 x 26 mm using distal protection device and intravascular ultrasound. 2. Left main patent, LAD proximal 90%, mid 100%, diagonal 1 is 90%, with SVG to diagonal is a small caliber vessel, less than 2 mm with focal 95% lesion, too small for amenable. RCA 100% proximal left to left collaterals and right to left collaterals, SVG to PDA 100%, EGAN to LAD was patent with normal LV function. RECOMMENDATIONS: The patient will be on IV saline, Aggrastat and Plavix. The patient was loaded with plavix 600mg , adequate ACT at 300 was obtained. The patient is currently chest pain free and discussed this in detail with the patient's niece and . TID: [id number] RECEIPT: [id number] VRM/ARV/VIS MTDD
[2021-05-26] MEDS ORDERED: ATROPINE 0.1% (1 MG/10 ML) CARDIAC SYRINGE ONE (17:41)
[2021-05-26 18:35] LABS: Hemoglobin 12.7 gm/dl (11.8-15.2)
[2021-05-26 18:46] LABS: INR 1.08 (0.87-1.13)
[2021-05-26] MEDS: METOPROLOL TARTRATE 25 MG TAB PO SCH ×2 (21:58→22:00)
[2021-05-27] MEDS: METOPROLOL TARTRATE 25 MG TAB PO SCH ×2 (08:39→10:48)
[2021-05-27] MEDS: INSULIN LISPRO 100 UNIT/ML SUB-Q SCH ×3 (08:39→17:14)
--- NOTE | 2021-05-27 08:58 | Electrocardiograph Report ---
[facility] Test Date: 2021-05-26 Test Time: 11:29:54 Pat Name: JABARI BALES Department: Room: A483 Gender: M Therapy Teacher: HUMZA : 1945 Requested By: GABRIEL CHU Order Number: [id number] Reading MD: Chauncey Schreiber Measurements Intervals [place] Rate: 86 P: 65 MT: 153 QRS: 38 QRSD: 99 T: 155 QT: 408 QTc: 485 Interpretive Statements Sinus rhythm Atrial premature complexes Inferior infarct, old Repol abnrm suggests ischemia, diffuse leads Compared to ECG 05/25/2021 19:43:32 Atrial premature complex(es) now present Early repolarization now present Possible ischemia now present T-wave abnormality no longer present Myocardial infarct finding still present Electronically Signed On 05-27-2021 8:57:53 EST by Chauncey Schreiber
--- NOTE | 2021-05-27 08:59 | Electrocardiograph Report ---
[facility] Test Date: 2021-05-26 Test Time: 14:13:54 Pat Name: JABARI BALES Department: Room: A483 Gender: M [employer] Super[employer]: HUMZA : 1945 Requested By: ROMINA BOONE Order Number: [id number] Reading MD: Chauncey Schreiber Measurements Intervals [place] Rate: 76 P: 66 IN: 175 QRS: -5 QRSD: 92 T: QT: 418 QTc: 471 Interpretive Statements Sinus rhythm Borderline ST depression, diffuse leads Compared to ECG 05/26/2021 11:29:54 ST (T wave) deviation now present Atrial premature complex(es) no longer present Myocardial infarct finding no longer present Early repolarization no longer present Possible ischemia no longer present Electronically Signed On 05-27-2021 8:58:33 EST by Chauncey Schreiber
[2021-05-27] MEDS ORDERED: ASPIRIN 81 MG TAB CHEW PO SCH (10:00)
[2021-05-27] MEDS ORDERED: CLOPIDOGREL 75 MG TAB PO SCH (10:00)
[2021-05-27 10:44] VITALS: BP 121/69
[2021-05-27 11:02] LABS: Hematocrit 39.1 % (35.5-45.6); Hemoglobin 12.8 gm/dl (11.8-15.2); Mean Corpuscular HGB Conc 33 % (32-34); Mean Corpuscular Volume 103 fl (84-94); Platelet Count 168 K/mm3 (140-440); Red Blood Count 3.82 M/mm3 (3.65-5.03); Red Cell Distribution Width 12.5 % (13.2-15.2)
--- NOTE | 2021-05-27 11:13 | Progress Note ---
Assessment and Plan 76-year-old male with hypertension diabetes cholesterol coronary arterial disease having acute coronary syndrome with non-ST elevation CT NSTEMI CAD s/p PCI ACS HTN DM HLD Cardiac Cath: Left main patent LAD proximal 90% mid 100% diagonal 1 proximal 90% circumflex mid 100% RCA proximal 100% normal LV function. SVG to PDA 100% SVG diagonal small caliber graft mid 95% lesion not amenable to intervention EGAN to LAD large-caliber graft patent SVG to OM1 OM 2 large-caliber graft distal 99%. Patient had PCI of the SVG to OM1 OM 2 with 3 drug-eluting stents. Outpatient medications: Lipitor 40 mg p.o. nightly, hydrochlorothiazide- olmesartan 12.5 mg - 20 mg p.o. daily metoprolol XL 25 mg p.o. daily Plan: Patient currently chest pain-free Continue dual antiplatelet therapy with aspirin and Plavix. Stressed the importance of compliance with dual antiplatelet therapy and potential risk and complications of noncompliance. Patient verbalized understanding and agreement Initiated Imdur 30 mg p.o. daily Resume outpatient metoprolol XL 25 mg p.o. daily and, hydrochlorothiazide- olmesartan 12.5 mg - 20 mg p.o. tomorrow Patient cardiac status stable for discharge Patient has a follow-up appointment with Dr. PARUL Ovalle, [facility] receivables specialist, on 05/29/2021 at 11:30AM at our [place] location. Phone #[phone] Patient seen in conjunction with Dr. Schreiber who agrees with this plan of care - Patient Problems (1) Acute diastolic CHF (congestive heart failure), NYHA class 1 Current Visit: Yes Status: Acute (2) NSTEMI (non-ST elevated myocardial infarction) Current Visit: Yes Status: Acute (3) ACS (acute coronary syndrome) Current Visit: No Status: Acute (4) CAD (coronary artery disease) Current Visit: No Status: Chronic Qualifiers: Coronary Disease-Associated Artery/Lesion type: bypass graft (5) Diabetes mellitus Current Visit: No Status: Chronic (6) HTN (hypertension) Current Visit: No Status: Chronic Qualifiers: Hypertension type: essential hypertension (7) Hyperlipidemia Current Visit: No Status: Chronic Subjective Date of service: 05/27/21 Principal diagnosis: NSTEMI Interval history: Patient for echo this a.m. Patient currently chest pain-free Patient sinus 70 on monitor with no events Objective Vital Signs Temp Pulse Pulse Resp BP Pulse Ox 05/27/21 10:53 80 18 97 05/27/21 08:02 98.1 F 83 18 121/69 95 05/27/21 03:20 97.9 F 18 127/74 05/27/21 03:15 97.9 F 72 16 128/57 98 05/26/21 23:06 98.5 F 71 16 133/76 99 05/26/21 19:52 97 05/26/21 19:41 79 05/26/21 19:17 97.7 F 84 16 127/71 99 05/26/21 18:28 79 23 134/66 99 05/26/21 18:23 69 11 L 115/68 98 05/26/21 18:17 74 17 132/70 98 05/26/21 18:13 76 16 129/77 96 05/26/21 18:10 75 17 122/75 97 05/26/21 18:05 73 13 121/77 99 05/26/21 17:59 81 12 124/64 98 05/26/21 17:40 72 16 121/68 98 05/26/21 17:00 71 16 122/69 98 05/26/21 16:00 61 14 129/70 97 05/26/21 15:30 80 13 117/70 96 05/26/21 15:00 73 13 110/66 95 05/26/21 14:45 74 16 106/62 94 05/26/21 14:30 77 12 112/66 93 05/26/21 14:15 75 15 119/68 97 05/26/21 14:00 97.7 F 80 16 119/73 98 05/26/21 11:29 81 135/71 - Physical Examination General: No Apparent Distress HEENT: Positive: PERRL, Mucus Membranes Moist Neck: Positive: neck supple, trachea midline Cardiac: Positive: Reg Rate and Rhythm Lungs: Positive: Normal Breath Sounds Neuro: Positive: Grossly Intact Abdomen: Positive: Soft, Active Bowel Sounds. Negative: Tender, Distended Skin: Positive: Clear Incision: Cardiac Cath Site Musculoskeletal: No Pain, Normal Range of Motion Extremities: Present: normal. Absent: edema - Labs and Meds Coagulation 05/26/21 Range/Units 18:20 PT 15.2 H (12.2-14.9) Sec. INR 1.08 (0.87-1.13) CBC 05/26/21 05/27/21 05/27/21 Range/Units 18:20 06:01 10:45 WBC 7.3 (4.5-11.0) K/mm3 RBC 3.82 (3.65-5.03) M/mm3 Hgb 12.7 12.8 (11.8-15.2) gm/dl Hct 39.0 39.1 (35.5-45.6) % Plt Count 184 151 168 (140-440) K/mm3 - Imaging and Cardiology Echo: pending Cardiac cath: report reviewed - Telemetry EKG Rhythm: Sinus Rhythm - EKG Sinus rhythms and dysrhythmias: sinus rhythm
[2021-05-27 12:11] LABS: BUN/Creatinine Ratio 16; Blood Urea Nitrogen 18 mg/dL (9-20); Calcium 9.4 mg/dL (8.4-10.2); Hemolysis Index 11
--- NOTE | 2021-05-27 13:25 | Discharge Summary ---
Providers - Providers Date of Admission: 05/26/21 13:40 Date of discharge: 05/27/21 Attending physician: SADAF VAZQUEZ MD 05/25/21 Consult to Cardiac Rehabilitation [CONS] Routine Reason For Exam: Phase I 05/25/21 20:27 Consult to Physician [CONS] Urgent Comment: Consulting Provider: CHANDRIKA BOWMAN Physician Instructions: Reason For Exam: acute chest pain 05/26/21 13:53 Consult to Cardiac Rehabilitation [CONS] Routine Reason For Exam: Cardiac Rehab Evaluation Primary care physician: [facility] Hospitalization Reason for admission: NSTEMI Condition: Stable Pertinent studies: Reviewed. Procedures: Left heart catherization s/p PCI x3 Hospital course: The patient is a 76-year-old male past medical history of cardiac bypass (2010), hypertension, hyperlipidemia, insulin-dependent type 2 diabetes mellitus, hypertension, migraines, history of colon cancer, and nephrolithiasis who presented with continuous, midsternal chest pressure that began continued despite nitroglycerin x3. Cardiology was consulted, and the patient underwent a left heart cath on 05/26/2021 that revealed the following: Patent left main, proximal LAD 90% stenosis, mid LAD 100% stenosis, proximal diagonal 90% stenosis, mid circumflex 100% stenosis, proximal RCA 100% stenosis, and normal LV function. 3 drug-eluting stents were placed, and the patient tolerated the procedure well. The patient will continue with atorvastatin 40 mg daily, hydrochlorothiazideolmesartan 12.5 mg - 20 mg daily, metoprolol XL 25 mg daily, aspirin 81 mg daily, Plavix 75 mg daily, and Imdur 30 mg daily. The patient will follow up with Dr. PARUL Bowman on 05/29/2021 at 11:30 AM ([facility]). The patient was counseled on dietary changes, and he expresses understanding. The patient was also counseled on postponing his previously scheduled outpatient colonoscopy until cleared by cardiology. The patient expresses understanding. The patient is medically cleared for discharge. Disposition: HOME / SELF CARE / HOMELESS Final Discharge Diagnosis (Prints w/discharge instructions): NSTEMI, CAD status post PCI x3, acute coronary syndrome, hypertension, insulin-dependent type 2 diabetes mellitus, hyperlipidemia Time spent for discharge: 45 min Core Measure Documentation - Palliative Care Palliative Care/ Comfort Measures: Not Applicable - Core Measures Any of the following diagnoses?: acute WA, history only - Acute WA Discharge Requirements Aspirin at discharge: Yes MOJGAN/ARB for LVSD if EF <40%: Yes Beta seda at discharge: Yes Statin for LDL = or >100 mg/dl on DC: Yes Exam - Constitutional Vitals: Temp Pulse Resp BP Pulse Ox 98.1 F 80 18 121/69 97 05/27/21 08:02 05/27/21 10:53 05/27/21 10:53 05/27/21 08:02 05/27/21 10:53 General appearance: Present: no acute distress, well-nourished - EENT Eyes: Present: PERRL, EOM intact ENT: hearing intact, clear oral mucosa, dentition normal - Neck Neck: Present: supple, normal ROM - Respiratory Respiratory effort: normal Respiratory: bilateral: CTA - Cardiovascular Rhythm: regular Heart Sounds: Present: S1 & S2 - Extremities Extremities: no ischemia, pulses intact, pulses symmetrical, No edema, normal temperature, normal color, Full ROM Peripheral Pulses: within normal limits - Abdominal General gastrointestinal: Present: soft, non-tender, non-distended, normal bowel sounds Male genitourinary: Present: deferred - Rectal Rectal Exam: deferred - Integumentary Integumentary: Present: clear, warm, dry - Musculoskeletal Musculoskeletal: strength equal bilaterally - Psychiatric Psychiatric: appropriate mood/affect, intact judgment & insight, memory intact, cooperative - Neurologic Neurologic: CNII-XII intact, moves all extremities - Allied Health Allied health notes reviewed: nursing Plan Activity: advance as tolerated Diet: low fat, low salt Additional Instructions: The patient is a 76-year-old male past medical history of cardiac bypass (2010), hypertension, hyperlipidemia, insulin-dependent type 2 diabetes mellitus, hypertension, migraines, history of colon cancer, and nephrolithiasis who presented with continuous, midsternal chest pressure that began continued despite nitroglycerin x3. Cardiology was consulted, and the patient underwent a left heart cath on 05/26/2021 that revealed the following: Patent left main, proximal LAD 90% stenosis, mid LAD 100% stenosis, proximal diagonal 90% stenosis, mid circumflex 100% stenosis, proximal RCA 100% stenosis, and normal LV function. 3 drug-eluting stents were placed, and the patient tolerated the procedure well. The patient will continue with atorvastatin 40 mg daily, hydrochlorothiazideolmesartan 12.5 mg - 20 mg daily, metoprolol XL 25 mg daily, aspirin 81 mg daily, Plavix 75 mg daily, and Imdur 30 mg daily. The patient will follow up with Dr. PARUL Bowman on 05/29/2021 at 11:30 AM ([facility]). The patient was counseled on dietary changes, and he expresses understanding. The patient was also counseled on postponing his previously scheduled outpatient colonoscopy until cleared by cardiology. The patient expresses understanding. The patient is medically cleared for discharge. Care Plan Goals: Patient is medically cleared for discharge. Assessment: The patient is a 76-year-old male past medical history of cardiac bypass (2010), hypertension, hyperlipidemia, insulin-dependent type 2 diabetes mellitus, hypertension, migraines, history of colon cancer, and nephrolithiasis who presented with continuous, midsternal chest pressure that began continued despite nitroglycerin x3. Cardiology was consulted, and the patient underwent a left heart cath on 05/26/2021 that revealed the following: Patent left main, proximal LAD 90% stenosis, mid LAD 100% stenosis, proximal diagonal 90% stenosis, mid circumflex 100% stenosis, proximal RCA 100% stenosis, and normal LV function. 3 drug-eluting stents were placed, and the patient tolerated the procedure well. The patient will continue with atorvastatin 40 mg daily, hydrochlorothiazideolmesartan 12.5 mg - 20 mg daily, metoprolol XL 25 mg daily, aspirin 81 mg daily, Plavix 75 mg daily, and Imdur 30 mg daily. The patient will follow up with Dr. PARUL Bowman on 05/29/2021 at 11:30 AM ([facility]). The patient was counseled on dietary changes, and he expresses understanding. The patient was also counseled on postponing his previously scheduled outpatient colonoscopy until cleared by cardiology. The patient expresses understanding. The patient is medically cleared for discharge. Follow up with: PRIMARY MD YOBANY [Primary Care Provider] - 7 Days CECILY BOWMAN MD [Staff Physician] - 05/29/21 11:30 am Prescriptions: Clopidogrel [Plavix] 75 mg PO QDAY #30 tablet
== END 2021-05-27 17:00 | disposition home or self-care (01) | DRG 246 ==
LOC: ED 19:25 → 4A 22:04 → OBSVTOIN 05-26 13:40 → 4A 05-26 16:04
PROVIDERS: ADMIT Internal Medicine Geriatric Medicine; ATTEND Student in an Organized Health Care Education/Training Program
PROC: 027136Z Dilation of Coronary Artery, Two Arteries with Three Drug-eluting Intraluminal Devices, Percutaneous Approach (ICD-10-PCS; principal; 2021-05-26)
PROC: 4A023N7 Measurement of Cardiac Sampling and Pressure, Left Heart, Percutaneous Approach (ICD-10-PCS; 2021-05-26)
PROC: B2111ZZ Fluoroscopy of Multiple Coronary Arteries using Low Osmolar Contrast (ICD-10-PCS; 2021-05-26)
PROC: B2151ZZ Fluoroscopy of Left Heart using Low Osmolar Contrast (ICD-10-PCS; 2021-05-26)
DX: I21.4 Non-ST elevation (NSTEMI) myocardial infarction (principal); I50.31 Acute diastolic (congestive) heart failure; I11.0 Hypertensive heart disease with heart failure; I24.9 Acute ischemic heart disease, unspecified; E11.9 Type 2 diabetes mellitus without complications; I10 Essential (primary) hypertension; I25.10 Atherosclerotic heart disease of native coronary artery without angina pectoris; Z85.038 Personal history of other malignant neoplasm of large intestine; G43.909 Migraine, unspecified, not intractable, without status migrainosus; E78.5 Hyperlipidemia, unspecified
CPT/HCPCS: 36415; 71046; 71275; 80048; 80053; 80061; 82962; 83880; 84484; 85014; 85018; 85025; 85027; 85049; 85379; 85610; 92937; 92978; 93005; 93010; 93017; 93306; 93459; G0378; J1815; J3490; Q0162; C1725; C1753; C1769; C1874; C1884; C1887; C1894; C9604; J0461; J1644; J2250; J2785; J3010; J3246; J7030; J7040; Q9967